=== PATIENT | female | born 1985 | race Caucasian/White ===

== ENCOUNTER 2016-03-23 08:34 | Emergency (ER) | payer SELFPAY ==
--- NOTE | 2016-03-23 10:04 | ER Document Report ---
HPI - HPI Patient complains to provider of: worsening back pain Onset: Other - Onset/Duration: Gradual Quality of pain: Throbbing Pain Level: 4 Context: 31 yo female with hx DJD c/o worsening of her usual low back pain since sunday. No fever. No saddle anesthesis. NO radiculopathy. Associated Symptoms: None Exacerbated by: Movement Relieved by: Denies Similar symptoms previously: Yes Recently seen / treated by doctor: No - ROS ROS below otherwise negative: Yes Systems Reviewed and Negative: Yes All other systems reviewed and negative - CARDIOVASCULAR Cardiovascular: DENIES: Chest pain - REPRODUCTIVE LMP: 03/10/16 Reproductive: DENIES: : - DERM Skin Color: Normal Past Medical History - General Information source: Patient - Social History Smoking Status: Never Smoker Chew tobacco use (# tins/day): No Frequency of alcohol use: None Drug Abuse: None Lives with: Family Family History: Reviewed & Not Pertinent, Hypertension, Thyroid Disfunction Patient has suicidal ideation: No Patient has homicidal ideation: No Renal/ Medical History: Denies: Hx Peritoneal Dialysis Musculoskeltal Medical History: Reports Hx Arthritis, Reports Hx Musculoskeletal Deformity, Reports Hx Musculoskeletal Trauma Surgical Hx: Negative - Immunizations Immunizations up to date: Yes Hx Diphtheria, Pertussis, Tetanus Vaccination: Yes - unknown Vertical Provider Document - CONSTITUTIONAL Agree With Documented VS: Yes Exam Limitations: No Limitations General Appearance: No Apparent Distress - INFECTION CONTROL TRAVEL OUTSIDE OF THE [place] IN LAST 30 DAYS: No - HEENT HEENT: Normocephalic - NECK Neck: Supple - RESPIRATORY Respiratory: Breath Sounds Normal, No Respiratory Distress O2 Sat by Pulse Oximetry: 100 - CARDIOVASCULAR Cardiovascular: Regular Rate, Regular Rhythm - BACK Back: Normal Inspection Notes: tender scaral muscles - MUSCULOSKELETAL/EXTREMETIES Musculoskeletal/Extremeties: ALETHEA ISSA - NEURO Level of Consciousness: Awake, Alert Motor/Sensory: No Motor Deficit, No Sensory Deficit Deep Tendon Reflexes: 2+ - shane ankle and patellar - DERM Integumentary: Warm, Dry, No Rash Course - Re-evaluation Re-evalutation: 03/23/16 10:20 Has been told in the past that she had the beginning of degenerative disc disease - Vital Signs Vital signs: Temp Pulse Resp BP Pulse Ox 97.9 F 111 H 18 140/87 H 100 03/23/16 08:42 03/23/16 08:42 03/23/16 08:42 03/23/16 08:42 03/23/16 08:42 Discharge - Discharge Clinical Impression: Acute exacerbation of chronic low back pain Condition: Good Disposition: HOME, SELF-CARE Instructions: Ice Packs ([facility]), Warm Packs ([facility]), Oral Narcotic Medication ([facility]) , Muscle Strain ([facility]), Muscle Relaxers ([facility]) Additional Instructions: warm or cold compress whichever feels better see [facility] Prescriptions: Ibuprofen [Motrin 800 mg Tablet] 800 mg PO Q8HP PRN #30 tablet PRN Reason: Cyclobenzaprine HCl [Flexeril 10 Mg Tablet] 10 mg PO TIDP PRN #20 tablet PRN Reason: Oxycodone HCl/Acetaminophen [Percocet 5-325 mg Tablet] 1 - 2 tab PO ASDIR PRN # 15 tablet PRN Reason: Referrals: CHANDNI YANG MD [ACTIVE STAFF] - Follow up as needed
[2016-03-23] MEDS ORDERED: OXYCODONE-ACETAMINOPHEN 5-325 MG TABLET PO ONE (10:15)
[2016-03-23] MEDS ORDERED: ONDANSETRON 4 MG TAB.RAPDIS PO ONE (10:15)
[2016-03-23 10:38] VITALS: BP 115/74
== END 2016-03-23 10:36 | disposition home or self-care (01) ==
LOC: ER 08:34
DX: M54.5 Low back pain (principal); M19.90 Unspecified osteoarthritis, unspecified site
CPT/HCPCS: 99283; S0119

== ENCOUNTER 2016-04-01 11:43 | Emergency (ER) | payer SELFPAY ==
--- NOTE | 2016-04-01 12:00 | ER Document Report ---
ED Medical Screen (RME) - General Stated Complaint: SKIN ISSUE Time seen by provider: 11:58 Mode of Arrival: Ambulatory Information source: Patient TRAVEL OUTSIDE OF THE [place] IN LAST 30 DAYS: No - HPI Patient complains to provider of: RASH Onset: Other - 2 DAYS Onset/Duration: Sudden Context: RECENTLY TOOK FLEXERIL FOR BACK PAIN, RASH STARTED AFTER THIS. Quality of pain: Burning Severity: Moderate Pain Level: 4 Associated Symptoms: None Exacerbated by: Movement Relieved by: Denies Similar symptoms previously: No Recently seen / treated by doctor: Yes - RECENTLY TREATED FOR BACK PAIN - Related Data Smoking: Non-smoker Frequency of alcohol use: None Drug Abuse: None Allergies/Adverse Reactions: No Known Allergies Allergy (Verified 04/01/16 11:57) Past Medical History Renal/ Medical History: Denies: Hx Peritoneal Dialysis Musculoskeltal Medical History: Reports Hx Arthritis, Reports Hx Musculoskeletal Deformity, Reports Hx Musculoskeletal Trauma - Immunizations Immunizations up to date: Yes Hx Diphtheria, Pertussis, Tetanus Vaccination: Yes - unknown
--- NOTE | 2016-04-01 13:21 | ER Document Report ---
ED Skin Rash/Insect Bite/Abscs - General Chief Complaint: Skin Problem Stated Complaint: SKIN ISSUE Mode of Arrival: Ambulatory Notes: 31 yo female c/o burning, itching rash to low back and left shoulder x 1 week. rash started 2 days after starting flexeril for low back pain. pt denies any other new contacts. TRAVEL OUTSIDE OF THE [place] IN LAST 30 DAYS: No - HPI Patient complains to provider of: Skin rash/lesion Onset: Last week Onset/Duration: Gradual, Persistent Quality of pain: Burning Skin Character: Erythema, Patchy Skin Temperature: Warm Quality of rash: Itchy, Burning Similar symptoms previously: No Recently seen / treated by doctor: Yes - last week in ED for back pain - Related Data Allergies/Adverse Reactions: No Known Allergies Allergy (Verified 04/01/16 11:57) Past Medical History - General Information source: Patient - Social History Smoking Status: Current Every Day Smoker Cigarette use (# per day): No Chew tobacco use (# tins/day): No Frequency of alcohol use: None Drug Abuse: None Lives with: Family Family History: Reviewed & Not Pertinent, Hypertension, Thyroid Disfunction Patient has suicidal ideation: No Patient has homicidal ideation: No Renal/ Medical History: Denies: Hx Peritoneal Dialysis Musculoskeltal Medical History: Reports Hx Arthritis, Reports Hx Musculoskeletal Deformity, Reports Hx Musculoskeletal Trauma - Immunizations Immunizations up to date: Yes Hx Diphtheria, Pertussis, Tetanus Vaccination: Yes - unknown Review of Systems - Review of Systems Constitutional: No symptoms reported EENT: No symptoms reported Cardiovascular: No symptoms reported Respiratory: No symptoms reported Gastrointestinal: No symptoms reported Genitourinary: No symptoms reported Female Genitourinary: No symptoms reported Musculoskeletal: No symptoms reported Skin: See HPI, Rash Hematologic/Lymphatic: No symptoms reported Neurological/Psychological: No symptoms reported Physical Exam - Vital signs Vitals: Temp Pulse Resp BP Pulse Ox 98.0 F 83 16 117/78 89 L 04/01/16 11:55 04/01/16 11:55 04/01/16 11:55 04/01/16 11:55 04/01/16 11:55 Interpretation: Normal - General General appearance: Appears well, Alert - HEENT Head: Normocephalic, Atraumatic Eyes: Normal Pupils: PERRL - Respiratory Respiratory status: No respiratory distress Chest status: Nontender Breath sounds: Normal Chest palpation: Normal - Cardiovascular Rhythm: Regular Heart sounds: Normal auscultation Murmur: No - Abdominal Inspection: Normal Distension: No distension Bowel sounds: Normal Tenderness: Nontender Organomegaly: No organomegaly - Back Back: Normal, Nontender - Extremities General upper extremity: Normal inspection, Nontender, Normal color, Normal ROM , Normal temperature General lower extremity: Normal inspection, Nontender, Normal color, Normal ROM , Normal temperature, Normal weight bearing. No: Luis's sign - Neurological Neuro grossly intact: Yes Cognition: Normal Orientation: AAOx4 [place] Coma Scale Eye Opening: Spontaneous [place] Coma Scale Verbal: Oriented [place] Coma Scale Motor: Obeys Commands [place] Coma Scale Total: 15 Speech: Normal Motor strength normal: LUE, RUE, LLE, RLE Sensory: Normal - Psychological Associated symptoms: Normal affect, Normal mood - Skin Skin Temperature: Warm Skin Moisture: Dry Skin Color: Normal Skin irregularity: Erythema, Rash - maculopapular rash to low back, crosses the mid point on both sides and patch to left posterior shoulder. no vesicles. no crusting or sloughing. no mucosal involvement Course - Re-evaluation Re-evalutation: 04/01/16 13:19 suspect allergic source of rash. low suspicion for infectious cause. low suspicion for shingles due to the rash distribution. it is not dermatomal and no vesicles are appreciated. Will treat with topical and oral steroids. pt evaluated by Dr Matthews who agrees with assessment and plan - Vital Signs Vital signs: Temp Pulse Resp BP Pulse Ox 98.0 F 83 16 117/78 89 L 04/01/16 11:55 04/01/16 11:55 04/01/16 11:55 04/01/16 11:55 04/01/16 11:55 Discharge - Discharge Clinical Impression: Contact dermatitis Qualifiers: Contact dermatitis type: allergic Contact dermatitis trigger: unspecified trigger Qualified Code(s): L23.9 - Allergic contact dermatitis, unspecified cause Condition: Stable Disposition: HOME, SELF-CARE Instructions: Steroid Medication, Topical Steroid Cream or Ointment ([facility]) Additional Instructions: We are treating your rash as allergic Apply cool compress with Dom boro's solution x 10 min, then apply steroid cream Take oral steroids as prescribed Benadryl for itch Prescriptions: Calcium Acetate/Aluminum Sulf [[place] Packet] 1 each TP TID PRN #30 packet PRN Reason: Prednisone [Deltasone 10 mg Tablet] 10 mg PO ASDIR PRN #21 tablet PRN Reason: Triamcinolone Acetonide [Aristocort 0.5% Cream 15 gm] 1 applic TP BID #30 g
[2016-04-01 14:05] VITALS: BP 126/78
== END 2016-04-01 14:03 | disposition home or self-care (01) ==
LOC: ER 11:43
DX: L23.9 Allergic contact dermatitis, unspecified cause (principal); F17.200 Nicotine dependence, unspecified, uncomplicated
CPT/HCPCS: 99283

== ENCOUNTER 2016-09-18 10:02 | Emergency (ER) | payer SELFPAY ==
[2016-09-18] MEDS ORDERED: KETOROLAC TROMETHAMINE 60 MG/2 ML SDV IM ONE (10:30)
[2016-09-18] MEDS ORDERED: PROMETHAZINE HCL INJ 50 MG/1 ML VIAL IM ONE (10:30)
--- NOTE | 2016-09-18 10:34 | ER Document Report ---
ED Medical Screen (RME) - General Chief Complaint: Back Pain Stated Complaint: FALL/BACK INJURY Time Seen by Provider: 09/18/16 10:30 Mode of Arrival: Ambulatory Information source: Patient TRAVEL OUTSIDE OF THE [place] IN LAST 30 DAYS: No - HPI Patient complains to provider of: lbp Onset: Just prior to arrival - pt with h/o lbp with twisting injury to lumbar spine when her dog pulled on leash. Denies direct trauma - Related Data Allergies/Adverse Reactions: No Known Allergies Allergy (Verified 09/18/16 10:06) Past Medical History - Social History Chew tobacco use (# tins/day): No Frequency of alcohol use: None Renal/ Medical History: Denies: Hx Peritoneal Dialysis Musculoskeltal Medical History: Reports Hx Arthritis, Reports Hx Musculoskeletal Deformity, Reports Hx Musculoskeletal Trauma Surgical Hx: Negative - Immunizations Immunizations up to date: Yes Hx Diphtheria, Pertussis, Tetanus Vaccination: Yes - unknown Physical Exam - Vital signs Vitals: Temp Pulse Resp BP Pulse Ox 99.0 F 124 H 16 140/93 H 99 09/18/16 10:08 09/18/16 10:08 09/18/16 10:08 09/18/16 10:08 09/18/16 10:08 Course - Vital Signs Vital signs: Temp Pulse Resp BP Pulse Ox 99.0 F 120 H 16 140/93 H 98 09/18/16 10:08 09/18/16 10:25 09/18/16 10:08 09/18/16 10:08 09/18/16 10:25
--- NOTE | 2016-09-18 11:40 | RADIOLOGY REPORT (SQ) ---
EXAM DESCRIPTION: CT LUMBAR SPINE WITHOUT COMPLETED DATE/TIME: 09/18/2016 11:07 am REASON FOR STUDY: low back pain COMPARISON: None. TECHNIQUE: Axial images acquired through the lumbar spine without intravenous contrast. Images revi ewed with lung, soft tissue and bone windows. Reconstructed coronal and sagittal MPR images reviewed . All images stored on PACS. All CT scanners at this facility use dose modulation, iterative reconstruction, and/or weight based d osing when appropriate to reduce radiation dose to as low as reasonably achievable (ALARA). [facility]: Dose Right [facility]: CareDose [facility]: Dose Right [facility]: Teradose 4D [facility]: [place] RADIATION DOSE: mGy. LIMITATIONS: None. FINDINGS: SEGMENTATION: Normal. No transitional anatomy. ALIGNMENT: Normal. VERTEBRAL BODIES: No fractures. No dislocation. No acute findings. DISCS: No significant protrusions. Study limited by lack of intrathecal contrast. PEDICLES, TRANSVERSE PROCESSES: No fractures. No dislocation. No acute findings. FACETS, POSTERIOR ELEMENTS: No fractures. No dislocation. No spinal stenosis. HARDWARE: None in the spine. VISUALIZED RIBS: No fractures. SOFT TISSUES: No significant or acute finding in adjacent soft tissues. OTHER: No other significant finding. IMPRESSION: No significant findings. No significant vertebral compression or disc space reduction i s seen. TECHNICAL DOCUMENTATION: JOB ID: [id number] Quality ID # [id number]: Final reports with documentation of one or more dose reduction techniques (e.g., Au tomated exposure control, adjustment of the mA and/or kV according to patient size, use of iterative reconstruction technique) 2010 [employer]- All Rights Reserved
[2016-09-18 12:05] LABS: APPEARANCE,URINE CLEAR; BILIRUBIN,URINE NEGATIVE (NEGATIVE); GLUCOSE, URINE NEGATIVE (NEGATIVE); KETONES,URINE NEGATIVE (NEGATIVE); LEUKOCYTE ESTERASE,URINE NEGATIVE (NEGATIVE); NITRITE,URINE NEGATIVE (NEGATIVE); PROTEIN,URINE NEGATIVE (NEGATIVE); URINE SPECIFIC GRAVITY 1.004; UROBILINOGEN,URINE NEGATIVE mg/dL (<2.0)
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
[2016-09-18 12:46] VITALS: BP 152/91
== END 2016-09-18 12:46 | disposition home or self-care (01) ==
LOC: ER 10:02
DX: M54.5 Low back pain (principal); X50.1XXA Overexertion from prolonged static or awkward postures, initial encounter; G89.29 Other chronic pain
CPT/HCPCS: 99284; 96372; 81025; 81001; 72131; J1885; J2550

== ENCOUNTER 2017-02-12 10:38 | Emergency (ER) | payer SELFPAY ==
[2017-02-12] MEDS ORDERED: DEXAMETHASONE SOD PHOS INJ 10 MG/1 ML VIAL IM ONE (12:37)
[2017-02-12] MEDS ORDERED: HYDROCODONE/ACETAMINOPHEN 5-325 MG 6 TAB/DSPK PO PRN (12:37)
[2017-02-12] MEDS ORDERED: LIDOCAINE 5% (700 MG) TRANSDERMAL ADH..PATCH TP ONE (12:37)
--- NOTE | 2017-02-12 12:46 | ER Document Report ---
ED Neck/Back Problem - General Chief Complaint: Low Back Pain Stated Complaint: BACK PAIN Time Seen by Provider: 02/12/17 11:05 Mode of Arrival: Ambulatory Information source: Patient Notes: 32-year-old female presents to ED for complaint of back pain that is progressively gotten worse today. Patient denies any loss control of bowel bladder. She has no loss of control of muscles. States she has taken ibuprofen 800 mg a day 30 today. She states she has degenerative disc disease. TRAVEL OUTSIDE OF THE [place] IN LAST 30 DAYS: No - HPI Patient complains to provider of: Lower back Onset: Other - chronic worse today Where: Home Onset: Chronic Timing: Waxing and waning, Still present Quality of pain: Sharp Severity: Moderate Pain Level: 4 Recent injury: No Associated symptoms: Like prior neck/back pain, Radiation to leg, Lower back pain. denies: Constipation, Incontinence, Motor loss, Numbness/tingling, Radiation to arm, Radiation to chest, Sensory loss, Sweaty, Unable to urinate, Upper back pain Exacerbated by: Movement of trunk, Sitting position Relieved by: Nothing Similar symptoms previously: Yes Recently seen / treated by doctor: No - Related Data Allergies/Adverse Reactions: No Known Allergies Allergy (Verified 02/12/17 10:41) Past Medical History - General Information source: Patient - Social History Smoking Status: Never Smoker Frequency of alcohol use: None Drug Abuse: None Lives with: Family Family History: Hypertension, Thyroid Disfunction Patient has suicidal ideation: No Patient has homicidal ideation: No - Past Medical History Cardiac Medical History: Reports: None Pulmonary Medical History: Reports: None EENT Medical History: Reports: None Neurological Medical History: Reports: None Endocrine Medical History: Reports: None Renal/ Medical History: Reports: None Malignancy Medical History: Reports: None GI Medical History: Reports: None Musculoskeltal Medical History: Reports Hx Arthritis, Reports Hx Musculoskeletal Deformity, Reports Hx Musculoskeletal Trauma Skin Medical History: Reports None Psychiatric Medical History: Reports: None Traumatic Medical History: Reports: None Infectious Medical History: Reports: None Surgical Hx: Negative Past Surgical History: Reports: None - Immunizations Immunizations up to date: Yes Hx Diphtheria, Pertussis, Tetanus Vaccination: Yes - unknown Review of Systems - Review of Systems Constitutional: No symptoms reported EENT: No symptoms reported Cardiovascular: No symptoms reported Respiratory: No symptoms reported Gastrointestinal: No symptoms reported. denies: Constipation, Fecal incontinence Genitourinary: No symptoms reported. denies: Incontinence, Retention Female Genitourinary: No symptoms reported Musculoskeletal: Back pain, Muscle pain, Muscle stiffness Skin: No symptoms reported Hematologic/Lymphatic: No symptoms reported Neurological/Psychological: No symptoms reported -: Yes All other systems reviewed and negative Physical Exam - Vital signs Vitals: Temp Pulse Resp BP Pulse Ox 98.9 F 116 H 18 124/94 H 99 02/12/17 10:46 02/12/17 10:46 02/12/17 10:46 02/12/17 10:46 02/12/17 10:46 Interpretation: Normal - General General appearance: Appears well, Alert - HEENT Head: Normocephalic, Atraumatic Eyes: Normal Pupils: PERRL - Respiratory Respiratory status: No respiratory distress Chest status: Nontender Breath sounds: Normal Chest palpation: Normal - Cardiovascular Rhythm: Regular Heart sounds: Normal auscultation Murmur: No - Abdominal Inspection: Normal Distension: No distension Bowel sounds: Normal Tenderness: Nontender Organomegaly: No organomegaly - Back Back: Normal, Tender. No: Deformity/step-off, CVA tenderness, Vertebra tenderness, Scars, Scoliosis, Wounds - Extremities General upper extremity: Normal inspection, Nontender, Normal color, Normal ROM , Normal temperature General lower extremity: Normal inspection, Nontender, Normal color, Normal ROM , Normal temperature, Normal weight bearing. No: Luis's sign - Neurological Neuro grossly intact: Yes Cognition: Normal Orientation: AAOx4 Kerwin Coma Scale Eye Opening: Spontaneous Burke Coma Scale Verbal: Oriented Kerwin Coma Scale Motor: Obeys Commands Burke Coma Scale Total: 15 Speech: Normal Motor strength normal: LUE, RUE, LLE, RLE Sensory: Normal - Psychological Associated symptoms: Normal affect, Normal mood - Skin Skin Temperature: Warm Skin Moisture: Dry Skin Color: Normal Course - Re-evaluation Re-evalutation: 02/12/17 20:42 Patient denies any signs or symptoms of cauda equina, denies any loss of control of bowel bladder, denies any saddle anesthesia, denies any loss control of muscles to the leg or loss of sensation to the legs. Patient is able to walk in the fact is walking around agitated, she states it hurts to sit down or bend over. She has a history of back pain. This is a chronic problem. Patient was treated with Decadron IM Lidoderm patch and [place] dispense pack for her pain. - Vital Signs Vital signs: Temp Pulse Resp BP Pulse Ox 98.9 F 102 H 18 125/84 97 02/12/17 10:46 02/12/17 12:57 02/12/17 10:46 02/12/17 12:57 02/12/17 12:57 Discharge - Discharge Clinical Impression: Low back pain Qualifiers: Chronicity: chronic Back pain laterality: bilateral Sciatica presence: with sciatica Sciatica laterality: sciatica of right side Qualified Code(s): M54.41 - Lumbago with sciatica, right side Condition: Stable Disposition: HOME, SELF-CARE Instructions: Family Physicians / Practices Additional Instructions: LOW BACK PAIN: Three out of every four people will have an episode of disabling back pain during their lifetime. Most commonly the pain is due to straining of the muscles and ligaments in the low back. Usual treatment includes: (1) Rest on a firm surface. Avoid lying on your stomach. (2) Ice pack the painful area. After a few days, gentle heat may be used intermittently to relax the area, or ice packs can be continued. (3) Medication may be needed -- muscle relaxers and antiinflammatory medicines are commonly used. (4) As the back improves, exercises are prescribed to strengthen the back and abdominal muscles. Your doctor will advise you on the proper care for your back at each stage in your recovery. You may be better in a few days -- or healing may take several weeks. If new symptoms of a "herniated disc" (radiation of pain, numbness, or tingling down the back of the leg or weakness in the leg) occur, you should be re-examined. Further testing may be necessary. ORAL NARCOTIC MEDICATION: You have been given a [place] dispense back for pain control. This medication is a narcotic. It's best taken with food, as nausea can result if taken on an empty stomach. Don't operate machinery or drive within six hours of taking this medication. Do not combine this medicine with alcohol, or with any medication which can cause sedation (such as cold tablets or sleeping pills) unless you get permission from the physician. Narcotics tend to cause constipation. If possible, drink plenty of fluids and eat a diet high in fiber and fruits. Please be aware that prescription narcotics also have the potential for abuse. People become addicted to these medications because of the general sense of wellbeing that they induce. This feeling along with a significant reduction in tension, anxiety, and aggression provides a stimulating seductive quality to these drugs. Once your pain is under control, we encourage you to discard your unused narcotics. MUSCLE RELAXERS: Muscle relaxing medications are usually prescribed for acute muscle spasm or injury to the neck and back. They are often combined with antiinflammatory pain medication for increased relief. You may stop the muscle relaxer when the pain and stiffness have improved. Start the medication again if spasms recur. Muscle relaxers may cause drowsiness, especially with the first dose. Do not operate machinery or drive while under the effects of the medication. Most muscle relaxers last up to 24 hours. Do not combine the medication with alcohol. ICE PACKS: Apply ice packs frequently against the painful area. Many different schedules are recommended, such as "20 minutes on, 20 minutes off" or "one hour ice, two hours rest." If you need to work, you may need to go longer between ice treatments. You should plan to have the area ice packed AT LEAST one fourth of the time. The ice should be applied over the wrap, tape, or splint, or over a layer of cloth -- not directly against the skin. Some ice bags have a built-in cloth and can be put directly on the skin. WARM PACKS: After approximately two days, apply gentle heat (such as a heating pad or hot water bottle) for about 20 to 30 minutes about every two hours -- at least four times daily. Warmth and elevation will help you make a more rapid recovery , and will ease the pain considerably. Do not use HOT heat, and never apply heat for longer than 30 minutes. The continuous heat can invisibly damage skin and muscles -- even when no burn is seen on the surface. Damaged muscles can make you MORE sore. Been given a Lidoderm patch while in the emergency room. This can stay on to your back for 12 hours. After this it must be removed. You can try Aspercreme or [id number] Lidoderm patches after this for your discomfort. FOLLOW-UP CARE: If you have been referred to a physician for follow-up care, call the physician s office for an appointment as you were instructed or within the next two days. If you experience worsening or a significant change in your symptoms, notify the physician immediately or return to the Emergency Department at any time for re-evaluation. Prescriptions: Methocarbamol [Robaxin 500 mg Tablet] 1,000 mg PO BID PRN #20 tablet PRN Reason: Forms: Elevated Blood Pressure, Return to Work Referrals: FRANKLIN QUIJANO MD [ASSOCIATE] - Follow up as needed
[2017-02-12 13:10] VITALS: BP 125/84
== END 2017-02-12 13:11 | disposition home or self-care (01) ==
LOC: ER 10:38
DX: G89.29 Other chronic pain (principal); M54.41 Lumbago with sciatica, right side
CPT/HCPCS: 99283; 96372; J1100

== ENCOUNTER 2017-07-09 19:14 | Emergency (ER) | payer SELFPAY ==
[2017-07-09] MEDS ORDERED: LIDOCAINE 5% (700 MG) TRANSDERMAL ADH..PATCH TP ONE (20:05)
[2017-07-09] MEDS ORDERED: OXYCODONE-ACETAMINOPHEN 5-325 MG TABLET PO ONE (20:05)
[2017-07-09] MEDS ORDERED: DEXAMETHASONE SOD PHOS INJ 10 MG/1 ML VIAL IM ONE (20:05)
[2017-07-09] MEDS ORDERED: METHOCARBAMOL 500 MG TABLET PO ONE (20:05)
[2017-07-09] MEDS ORDERED: KETOROLAC TROMETHAMINE 60 MG/2 ML SDV IM ONE (20:05)
--- NOTE | 2017-07-09 20:13 | ER Document Report ---
ED Neck/Back Problem - General Chief Complaint: Back Pain Stated Complaint: LOWER BACK PAINS Time Seen by Provider: 07/09/17 19:57 Mode of Arrival: Ambulatory Information source: Patient Notes: 32-year-old female presents to ED for complaint of severe low back pain the last 2 days. She states it feels like it is on fire. She has a history of severe back pain with degenerative disc disease. She states she is unable to go to a doctor for her chronic back pain and is progressively getting worse. She states she has not been able sleep for 2 days because the pain is so bad. She states she has been taken ibuprofen with no relief. She states she has had muscle relaxers in the past and they have not helped. TRAVEL OUTSIDE OF THE [place] IN LAST 30 DAYS: No - HPI Patient complains to provider of: Lower back Onset: Other - 2 days Onset: Chronic Timing: Worse Quality of pain: Burning, Sharp, Throbbing Severity: Severe Pain Level: 5 Recent injury: No Associated symptoms: Like prior neck/back pain, Lower back pain - Radiates to right buttocks. denies: Constipation, Fever, Incontinence, Motor loss, Numbness /tingling, Radiation to arm, Radiation to chest, Radiation to leg, Sweaty, Unable to urinate, Upper back pain Exacerbated by: Movement of trunk, Sitting position Relieved by: Nothing Similar symptoms previously: Yes Recently seen / treated by doctor: No - Related Data Allergies/Adverse Reactions: No Known Allergies Allergy (Verified 02/12/17 10:41) Past Medical History - General Information source: Patient - Social History Smoking Status: Never Smoker Cigarette use (# per day): No Chew tobacco use (# tins/day): No Smoking Education Provided: No Frequency of alcohol use: None Drug Abuse: None Lives with: Family Family History: Hypertension, Thyroid Disfunction Patient has suicidal ideation: No Patient has homicidal ideation: No - Past Medical History Cardiac Medical History: Reports: None Pulmonary Medical History: Reports: None EENT Medical History: Reports: None Neurological Medical History: Reports: None Endocrine Medical History: Reports: None Renal/ Medical History: Denies: Hx Peritoneal Dialysis Musculoskeltal Medical History: Reports Hx Arthritis, Reports Hx Musculoskeletal Deformity, Reports Hx Musculoskeletal Trauma - Immunizations Immunizations up to date: Yes Hx Diphtheria, Pertussis, Tetanus Vaccination: Yes - unknown Review of Systems - Review of Systems Constitutional: No symptoms reported EENT: No symptoms reported Cardiovascular: No symptoms reported Respiratory: No symptoms reported Gastrointestinal: No symptoms reported. denies: Constipation, Fecal incontinence Genitourinary: No symptoms reported. denies: Incontinence, Retention Female Genitourinary: No symptoms reported Musculoskeletal: Back pain, Muscle pain Skin: No symptoms reported Hematologic/Lymphatic: No symptoms reported Neurological/Psychological: No symptoms reported. denies: Weakness, Gait changes, Loss of power, Numbness, Tingling -: Yes All other systems reviewed and negative Physical Exam - Vital signs Vitals: Temp Pulse Resp BP Pulse Ox 98.4 F 90 16 119/79 100 07/09/17 19:44 07/09/17 19:44 07/09/17 19:44 07/09/17 19:44 07/09/17 19:44 Interpretation: Normal - General General appearance: Appears well, Alert - HEENT Head: Normocephalic, Atraumatic Eyes: Normal Pupils: PERRL - Respiratory Respiratory status: No respiratory distress Chest status: Nontender Breath sounds: Normal Chest palpation: Normal - Cardiovascular Rhythm: Regular Heart sounds: Normal auscultation Murmur: No - Abdominal Inspection: Normal Distension: No distension Bowel sounds: Normal Tenderness: Nontender Organomegaly: No organomegaly - Back Back: Normal, Tender - Tender to lower back bilateral to include vertebrae. Tenderness to the SI joint on the right, Vertebra tenderness - Lumbar area - Extremities General upper extremity: Normal inspection, Nontender, Normal color, Normal ROM , Normal temperature General lower extremity: Normal inspection, Nontender, Normal color, Normal ROM , Normal temperature, Normal weight bearing. No: Luis's sign - Neurological Neuro grossly intact: Yes Cognition: Normal Orientation: AAOx4 Kerwin Coma Scale Eye Opening: Spontaneous Kerwin Coma Scale Verbal: Oriented Kerwin Coma Scale Motor: Obeys Commands Kerwin Coma Scale Total: 15 Speech: Normal Motor strength normal: LUE, RUE, LLE, RLE Sensory: Normal - Psychological Associated symptoms: Normal affect, Normal mood - Skin Skin Temperature: Warm Skin Moisture: Dry Skin Color: Normal Course - Re-evaluation Re-evalutation: 07/09/17 21:30 After performing a Medical Screening Examination, I estimate there is LOW risk for EXPANDING OR RUPTURED ABDOMINAL AORTIC ANEURYSM, CAUDA EQUINA SYNDROME, EPIDURAL MASS LESION, or HERNIATED DISK CAUSING SEVERE SPINAL STENOSIS, thus I consider the discharge disposition reasonable. I have reevaluated this patient multiple times and no significant life threatening changes are noted. The patient and I have discussed the diagnosis and risks, and we agree with discharging home and close follow-up. We also discussed returning to the Emergency Department immediately if new or worsening symptoms occur with the understanding that symptoms and presentations can change. We have discussed the symptoms which are most concerning (e.g., saddle anesthesia, urinary or bowel incontinence or retention, changing or worsening pain) that necessitate immediate return. - Vital Signs Vital signs: Temp Pulse Resp BP Pulse Ox 97.7 F 62 16 112/70 98 07/09/17 20:29 07/09/17 20:29 07/09/17 19:44 07/09/17 20:29 07/09/17 20:29 Discharge - Discharge Clinical Impression: Acute exacerbation of chronic low back pain Sciatica Qualifiers: Laterality: right Qualified Code(s): M54.31 - Sciatica, right side Condition: Stable Disposition: HOME, SELF-CARE Instructions: Family Physicians / Practices Additional Instructions: Chronic Back Pain Chronic back pain (pain persisting longer than three months) is a common problem. A medical evaluation can look for herniated disc, arthritis, osteoporosis, tumors, and infections. But at least half the time, there's no obvious treatable cause. Anxiety and depression tend to worsen back pain. Ibuprofen or other anti-inflammatory medicine can help. A heating pad, used for 15-20 minutes at a time, can ease pain. For this type of back pain, narcotic medicines should be avoided. Muscle relaxers are rarely helpful unless you're having spasms. Activity is important. Find an aerobic exercise program that your back can tolerate. Too much rest makes back pain worse. Specific back exercises are usually prescribed to strengthen the back and abdominal muscles. Often, a physical therapist can help. Avoid heavy lifting, working while bent over, or standing with both knees straight. Most back pain patients do better with a firm mattress. If new symptoms of a "herniated disc" (radiation of pain, numbness, or tingling down the back of the leg or weakness in the leg) occur, you should be re-examined. ORAL NARCOTIC MEDICATION: You have been given a Percocet for pain control. This medication is a narcotic. It's best taken with food, as nausea can result if taken on an empty stomach. Don't operate machinery or drive within six hours of taking this medication. Do not combine this medicine with alcohol, or with any medication which can cause sedation (such as cold tablets or sleeping pills) unless you get permission from the physician. Narcotics tend to cause constipation. If possible, drink plenty of fluids and eat a diet high in fiber and fruits. Please be aware that prescription narcotics also have the potential for abuse. People become addicted to these medications because of the general sense of wellbeing that they induce. This feeling along with a significant reduction in tension, anxiety, and aggression provides a stimulating seductive quality to these drugs. Once your pain is under control, we encourage you to discard your unused narcotics. MUSCLE RELAXERS: Muscle relaxing medications are usually prescribed for acute muscle spasm or injury to the neck and back. They are often combined with antiinflammatory pain medication for increased relief. You may stop the muscle relaxer when the pain and stiffness have improved. Start the medication again if spasms recur. Muscle relaxers may cause drowsiness, especially with the first dose. Do not operate machinery or drive while under the effects of the medication. Most muscle relaxers last up to 24 hours. Do not combine the medication with alcohol. ICE PACKS: Apply ice packs frequently against the painful area. Many different schedules are recommended, such as "20 minutes on, 20 minutes off" or "one hour ice, two hours rest." If you need to work, you may need to go longer between ice treatments. You should plan to have the area ice packed AT LEAST one fourth of the time. The ice should be applied over the wrap, tape, or splint, or over a layer of cloth -- not directly against the skin. Some ice bags have a built-in cloth and can be put directly on the skin. WARM PACKS: After approximately two days, apply gentle heat (such as a heating pad or hot water bottle) for about 20 to 30 minutes about every two hours -- at least four times daily. Warmth and elevation will help you make a more rapid recovery , and will ease the pain considerably. Do not use HOT heat, and never apply heat for longer than 30 minutes. The continuous heat can invisibly damage skin and muscles -- even when no burn is seen on the surface. Damaged muscles can make you MORE sore. Stretching Exercises for the Back The physician has recommended that you begin stretching exercises for your back. These are often used even while the back is painful. However, you should notify the physician if the activities seem to increase your pain. PELVIC TILT: Lie flat on your back with knees bent. Tighten your stomach and buttock muscles so it flattens your lower back against the floor. Hold 10 seconds. Repeat 10 times, twice daily. KNEE RAISE: Lying on the back with knees bent, raise one knee to your chest, then the other. Hold both knees against the chest 10 seconds, then lower one knee at a time. Repeat 10 times, twice daily. PARTIAL TRUNK RAISE: Lie face down, arms at your sides. Keeping your waist on the floor, use your arms raise your chest up. Support yourself on your elbows for 30 seconds. Repeat twice daily, increasing the time to two minutes as you recover. STEROID MEDICATION: You have been given an injection of medicine of the cortisone/steroid class. This medication is used to control inflammation or allergy. It is often continued as a pill for a short period of time, until the acute process subsides. There are usually no side effects from short-term use of cortisone-like medications. Some persons feel an increased sense of well-being and are not sleepy at bedtime. Long-term use of cortisone medications is best avoided, unless required for a severe condition. If your condition does not remit, or relapses after the course of corticosteroid medication, you should consult your physician. Toradol Injection You have been given an injection of ketorolac tromethamine (Toradol). This is an excellent, safe drug for pain control. It also has potent antiinflammatory action. You should have significant pain relief within about one hour. Toradol is not addicting and is non-sedating. It does not interfere with driving or work. Call or return if you develop itching, hives, shortness of breath, or rash. FOLLOW-UP CARE: If you have been referred to a physician for follow-up care, call the physician s office for an appointment as you were instructed or within the next two days. If you experience worsening or a significant change in your symptoms, notify the physician immediately or return to the Emergency Department at any time for re-evaluation. Prescriptions: Methocarbamol [Robaxin 500 mg Tablet] 1,000 mg PO BID PRN #20 tablet PRN Reason: Forms: Return to Work
[2017-07-09 20:31] VITALS: BP 112/70
== END 2017-07-09 20:41 | disposition home or self-care (01) ==
LOC: ER 19:14
DX: G89.29 Other chronic pain (principal); M54.41 Lumbago with sciatica, right side
CPT/HCPCS: 99283; 96372; J1885; J1100

== ENCOUNTER 2018-02-21 04:02 | Emergency (ER) | payer SELFPAY ==
[2018-02-21] MEDS ORDERED: MORPHINE SULFATE 10 MG/ML INJ IM ONE (04:16)
[2018-02-21] MEDS ORDERED: METHOCARBAMOL 750 MG TABLET PO ONE (04:17)
--- NOTE | 2018-02-21 04:22 | ER Document Report ---
ED General - General Chief Complaint: Low Back Pain Stated Complaint: BACK PAIN Time Seen by Provider: 02/21/18 04:11 Notes: Patient is a 33-year-old female with history of chronic low back pain that presents to the emergency department for chief complaint of back pain. Patient reports that she has had progression of her chronic low back pain, over the past 48 hours, she describes the pain as 9 out of 10, describes it as a severe aching sensation in her low back, worse with bending over and movements. And worse with walking. She denies saddle anesthesia, paresthesias, numbness, tingling or weakness in the lower extremities, she states the pain gets so severe that she feels weak in her legs when she is walking, but denies falling over, or having numbness or weakness on one side of the other. She also denies having any urinary retention, or incontinence, also denies having any incontinence of stool. No injuries that she is aware of. This is similar to her chronic low back pain, she has been taking Motrin and Tylenol without improvement. She reports that she has been out of insurance, and has not been able to see anybody for her pain. Past Medical History: Chronic low back pain, degenerative disc disease Past Surgical History: Denies surgical history Social History: Denies tobacco, alcohol or drug use. Family History: Reviewed and noncontributory for presenting illness Allergies: Reviewed, see documented allergy list. REVIEW OF SYSTEMS: Other than noted above, the 12 point review of systems was reviewed with the patient and were negative, all pertinent findings are included in the HPI. PHYSICAL EXAMINATION: Vital signs reviewed, nursing noted reviewed. GENERAL: Patient appears uncomfortable, agitated HEAD: Atraumatic, normocephalic. EYES: Eyes appear normal, sclera anicteric, conjunctiva are normal. ENT: Moist mucous membranes. NECK: Normal range of motion, supple without lymphadenopathy LUNGS: Breath sounds clear to auscultation bilaterally and equal. No wheezes rales or rhonchi. HEART: Heart rate tachycardic, irregular rhythm EXTREMITIES: Nontender, good range of motion, no pitting or edema. Back: Mild tenderness to palpation to the SI joints bilaterally, as well as the paraspinal muscles of the lumbar spine, no midline tenderness, no step-off or deformities to the thoracic or lumbar spine. Negative straight leg raising bilaterally. Patient was ambulating in the ED. NEUROLOGICAL: No focal neurological deficits. Moves all extremities spontaneously Motor and sensory grossly intact on exam. Achilles and patellar tendon reflexes are +2/4 bilaterally, patient has +5/5 strength with plantarflexion, dorsiflexion, and extension of the hallucis longus tendon bilaterally. PSYCH: Patient is agitated, but appropriate when answering questions SKIN: Warm, Dry, normal turgor, no rashes or lesions noted on exposed skin TRAVEL OUTSIDE OF THE [place] IN LAST 30 DAYS: No - Related Data Allergies/Adverse Reactions: No Known Allergies Allergy (Verified 02/21/18 04:03) Past Medical History - Social History Smoking Status: Never Smoker Family History: Hypertension, Thyroid Disfunction Patient has suicidal ideation: No Patient has homicidal ideation: No Renal/ Medical History: Denies: Hx Peritoneal Dialysis Musculoskeletal Medical History: Reports Hx Arthritis, Reports Hx Musculoskeletal Deformity, Reports Hx Musculoskeletal Trauma - Immunizations Immunizations up to date: Yes Hx Diphtheria, Pertussis, Tetanus Vaccination: Yes - unknown Physical Exam - Vital signs Vitals: Temp Pulse Resp BP Pulse Ox 100.1 F 125 H 22 H 113/67 100 02/21/18 04:06 02/21/18 04:06 02/21/18 04:06 02/21/18 04:06 02/21/18 04:06 Course - Re-evaluation Re-evalutation: Presentation of a well appearing patient complaining of acute on chronic back pain. No rapid progression of symptoms, systemic symptoms including fevers, chills, weight loss, history of recent bacterial infection, bilateral symptoms, numbness, weakness, difficulty walking, urinary retention or bowel incontinence, personal history of cancer, immunosuppression, diabetes, known AAA, or history of IV drug use. Exam is without point tenderness over vertebral bodies, pulsatile abdominal mass, and patient has symmetric and intact lower extremity strength, sensation, and reflexes without clonus. 2+ symmetric medial malleolar and dorsalis pedis pulses Based on history and physical, I have a very low suspicion of a concerning etiology of pain including epidural compression syndrome, spinal infection, transverse myelitis, malignancy, abdominal aortic aneurysm, renal colic, acute lower extremity claudication, neurogenic claudication, ankylosing spondylitis, or other intra-abdominal process. Due to absence of concerning risk factors in history and physical as well as absence of rapidly progressive, severe, or bilateral symptoms, will defer imaging at this point. Patient treated with single dose of IM morphine 4 mg, and p.o. Robaxin 750 mg, did obtain urinalysis, urine hCG, prior to administrating any NSAIDs. Patient hCG did come back positive, in the urine, she stated her first day of her last menstrual period was the beginning of this month, she is currently on oral contraceptive pills, I discussed that there this result, she stated that she "cannot keep this 1", and is planning on having an . She states that her pain is too severe, I discussed that there Tylenol therapy, warm compresses and following up with orthopedic surgery, I did dispense her 6 pills of [place] to take for breakthrough pain only, and have her follow-up with orthopedic surgery which she was agreeable to. - Vital Signs Vital signs: Temp Pulse Resp BP Pulse Ox 100.1 F 108 H 18 110/67 99 02/21/18 05:15 02/21/18 05:15 02/21/18 05:15 02/21/18 05:15 02/21/18 05:15 - Laboratory Laboratory results interpreted by me: 02/21/18 04:30 Urine HCG, Qual POSITIVE H Discharge - Discharge Clinical Impression: Low back pain Qualifiers: Chronicity: chronic Back pain laterality: bilateral Sciatica presence: without sciatica Qualified Code(s): M54.5 - Low back pain Qualifiers: Weeks of gestation: unspecified Qualified Code(s): Z34.90 - Encounter for supervision of normal , unspecified, unspecified trimester Condition: Stable Disposition: HOME, SELF-CARE Instructions: Low Back Pain ([facility]) Additional Instructions: Please follow-up with orthopedic surgery, please take the prescribed pain medication sparingly, and only for breakthrough pain. You are positive for on this visit, I have provided women's health follow-up Referrals: MAHAMED MACKEY MD [ACTIVE STAFF] - Follow up as needed [facility] [Provider Group] - Follow up as needed
[2018-02-21 04:57] LABS: APPEARANCE,URINE SLIGHTLY-CLOUDY; BILIRUBIN,URINE NEGATIVE (NEGATIVE); COLOR,URINE YELLOW; GLUCOSE, URINE NEGATIVE (NEGATIVE); KETONES,URINE NEGATIVE (NEGATIVE); LEUKOCYTE ESTERASE,URINE NEGATIVE (NEGATIVE); NITRITE,URINE NEGATIVE (NEGATIVE); PROTEIN,URINE NEGATIVE (NEGATIVE); URINE SPECIFIC GRAVITY 1.023; UROBILINOGEN,URINE NEGATIVE mg/dL (<2.0)
[2018-02-21] MEDS ORDERED: HYDROCODONE/ACETAMINOPHEN 5-325 MG (6 TAB/ER DISP) PO PRN (05:12)
[2018-02-21 05:23] VITALS: BP 110/67
== END 2018-02-21 05:23 | disposition home or self-care (01) ==
LOC: ER 04:02
DX: O99.351 Diseases of the nervous system complicating pregnancy, first trimester (principal); G89.29 Other chronic pain; M54.5 Low back pain; Z3A.01 Less than 8 weeks gestation of pregnancy
CPT/HCPCS: 99283; 96372; 81025; 81001; J3490; J2270

== ENCOUNTER 2018-02-22 15:38 | Emergency (ER) | payer SELFPAY ==
[2018-02-22 17:33] LABS: A TYPE INFLUENZA AG POSITIVE (NEGATIVE); B INFLUENZA AG NEGATIVE (NEGATIVE)
--- NOTE | 2018-02-22 18:21 | ER Document Report ---
Addendum entered and electronically signed by JEREMIAH FUENTES PA-C 02/22/18 18:37: Discharge - Discharge Clinical Impression: Influenza A Condition: Stable Disposition: HOME, SELF-CARE Instructions: Acetaminophen, Influenza ([facility]) [id number], Oral Narcotic Medication ([facility]) Additional Instructions: INFLUENZA: The physician feels that you have influenza -- the "flu". Influenza is an infection caused by a virus. Symptoms include generalized aching, fever, headache, dry cough, and fatigue. Some patients with the flu also have nausea, vomiting, and diarrhea. The fever and aches usually last two to four days, with the cough persisting another one to two weeks. Treatment of the flu, for the most part, is simply treatment of symptoms. Rest, drink plenty of fluids, and use acetaminophen for fever and aches. Do not take aspirin. There is an anti-viral medication, called Tamiflu, which may help in "type A" flu, but it's not helpful in every case of flu, and only works if started within the first 24 - 48 hours of the start of symptoms. The physician will determine whether this medication can help you. To prevent spread of the virus, use good handwashing. Shared toys should be cleaned with disinfectant. Clean the toilets, sinks, and counter surfaces in bathrooms. Launder clothing in hot water. What are conditions that should receive medical attention? The development of difficulty breathing. Lip color changes to blue or purple. Persistent vomiting and unable to keep liquids down with signs of dehydration such as: dizziness when standing, unable to urinate, or if child/infant is crying no tears are noticed. Is less responsive than normal or becomes confused. How do I decrease the spread of flu in my home? Taking care of the sick patient at home: Keep the sick person in a room separate from the common areas of the house. Keep the "sickroom" door closed. If the person with the flu needs to leave the home, they should cover their nose/mouth when coughing or sneezing and wear a disposable (surgical) mask if available. These masks may be available at your local pharmacy, medical supply a [employer] hardware store. If the sick person is in common areas of the house, have them wear a surgical mask. If possible, have the sick person use a separate bathroom that should be cleaned daily with a household disinfectant. If you are the caregiver: Avoid being face to face with the sick adult person as much as possible. Try to stay at least 6 feet away and wear a disposable surgical mask when possible. When holding small children who are sick, place their chin on your shoulder so that they will not cough in your face. Wash your hands after you touch the sick person or handle their tissues and laundry. Wear a mask if you leave home, as you may be infected from taking care of someone and not know it yet. Watch yourself and others in the home for flu symptoms and contact your doctor if symptoms occur. NOTE: Antiviral medication used to reduce the symptoms of the flu works only if taken within 48 hours, and best within 24 hours of symptom onset. Household Cleaning, laundry and waste disposal: Tissues and other disposable items used by the sick person should be thrown away in the trash. Wash your hands after touching these used items. No special waste disposal is required. Keep surfaces (especially bedside tables, bathroom surfaces, and toys for children) clean by wiping them down with a safe household disinfectant according to the directions on the product label. Per Center for Disease Control advice, most people will not receive testing to confirm flu. Also based on the person's health history and onset of symptoms, not all patients will receive prescriptions for antiviral medications. If you have questions related to this, please ask your healthcare provider. For more information, you can call the Centers for Disease Control and Prevention (CDC) Hotline at 9-666-[employer] This line is available in [place] and [place], 24 hours a day, 7 days a week. Or www.[employer] or www.cdc.gov Flu-Like Illness Home Instructions: The influenza virus infection can cause a wide rage of symptoms, including: Fever, cough, sore throat, body aches, headaches, chills, fatigue, with some patients reporting diarrhea and vomiting Like seasonal influenza A, H1N1 ("swine flu")in humans can vary in severity from mild to severe Severe illness with pneumonia, respiratory failure and even is possible Certain groups might be more likely to develop a severe illness from H1N1 infection. Sometimes bacterial infections may occur at the same time as or after infection with influenza viruses and lead to pneumonias, ear infections, or sinus infections. How Flu Spreads The main way that influenza viruses spread is through respiratory droplets of coughs and sneezes. This can happen when someone with the infection coughs or sneezes and the particles fly through the air and land on other people and surfaces. If the person covers their mouth and nose with their hand but does not wash their hands immediately, then these germs are passed onto the next object that they touch. People with Influenza A or suspected H1N1 (swine flu) who are cared for at home should: Check with their doctor about any special care that they might need if they are or have a health condition such as diabetes, heart disease, asthma or emphysema. Also, limit caregiver to one (if possible). women or those with chronic health conditions should not take care of the flu patient unless necessary. Check with their doctor about whether or not medications are needed that may lessen the symptoms of the flu. Stay at home until 24 hours fever free without the use of fever reducing medication. Get plenty of rest and avoid other healthy people in your home. Drink plenty of clear liquids to keep from getting dehydrated. Take medications like Tylenol (Acetaminophen), Advil/Motrin/Nuprin (Ibuprofen) or Aleve (Naproxen) for fevers and aches. All children under the age of 18 years of age should not take aspirin or products containing aspirin (e.g. Pepto Bismol), as this can cause a rare serious illness called Carlene Syndrome. Over the counter medications for flu and colds may help, but it is very important to follow the package directions. Remember that the medicine may help the symptoms, but it will not help prevent others from getting sick if they are around you. Cover coughs and sneezes using your bent arm. Clean hands with soap and water or an alcohol-based hand rub often, especially after using tissues to cough or sneeze. Encourage hand washing frequently for all people living in the home! The sick person should not have visitors other than caregivers. Encourage concerned loved ones to call instead of visit. Avoid close contact with others-do not go to work or school while sick. USE OF ACETAMINOPHEN (Tylenol): Acetaminophen may be taken for pain relief or fever control. It's much safer than aspirin, offering a wider range of "safe" dosages. It is safe during . Some brand names are Tylenol, Panadol, Datril, Anacin 3, Tempra, and Liquiprin. Acetaminophen can be repeated every four hours. The following are maximum recommended dosages: WEIGHT Dose Drops Elixir Chewable(8 0mg) (LBS.) drprs=droppers tsp=teaspoon 6 40 mg 0.4 ml (1/2) 6-11 80 mg 0.8 ml (full) tsp 1 tab 12-16 120 mg 1 1/2 drprs 3/4 tsp 1 1/2 tabs 17-23 160 mg 2 drprs 1 tsp 2 tabs 24-30 240 mg 3 drprs 1 1/2 tsp 3 tabs 30-35 320 mg 2 tsp 4 tabs 36-41 360 mg 2 1/4 tsp 4 1/2 tabs 42-47 400 mg 2 1/2 tsp 5 tabs 48-53 480 mg 3 tsp 6 tabs 54-59 520 mg 3 1/4 tsp 6 1/2 tabs 60-64 560 mg 3 1/2 tsp 7 tabs 65-70 600 mg 3 3/4 tsp 7 1/2 tabs 71-76 640 mg 4 tsp 8 tabs 77-82 720 mg 4 1/2 tsp 9 tabs 83-88 800 mg 5 tsp 10 tabs >89 pounds or adults 650 mg to 900 mg Acetaminophen can be repeated every four hours. Maximum dose not to exceed 4000 mg a day. These maximum recommended dosages are slightly higher than the dosages written on the product container, but these dosages are very safe and below the toxic dosage for acetaminophen. ORAL NARCOTIC MEDICATION: You have been given a prescription for pain control. This medication is a narcotic. It's best taken with food, as nausea can result if taken on an empty stomach. Don't operate machinery or drive within six hours of taking this medication. Do not combine this medicine with alcohol, or with any medication which can cause sedation (such as cold tablets or sleeping pills) unless you get permission from the physician. Narcotics tend to cause constipation. If possible, drink plenty of fluids and eat a diet high in fiber and fruits. Please be aware that prescription narcotics also have the potential for abuse. People become addicted to these medications because of the general sense of wellbeing that they induce. This feeling along with a significant reduction in tension, anxiety, and aggression provides a stimulating seductive quality to these drugs. Once your pain is under control, we encourage you to discard your unused narcotics. FOLLOW-UP CARE: If you have been referred to a physician for follow-up care, call the physicians office for an appointment as you were instructed or within the next two days. If you experience worsening or a significant change in your symptoms, notify the physician immediately or return to the Emergency Department at any time for re-evaluation. Prescriptions: Acetaminophen with Codeine [Tylenol #3 Tablet] 1 each PO Q4HP PRN #15 tablet PRN Reason: Promethazine HCl [Phenergan 25 mg Tablet] 25 mg PO Q4HP PRN #12 tablet PRN Reason: Oseltamivir Phosphate [Tamiflu 75 mg Capsule] 75 mg PO BID #10 capsule Pseudoephedrine HCl [Sudafed 12 Hour] 120 mg PO BID #20 tablet.er Forms: Special Work Note [facility]: [facility] [NO [facility]AL MD] - Follow up as needed Original Note: ED Flu Like - General Chief Complaint: Flu Symptoms Stated Complaint: FLU LIKE SYMPTOMS Time Seen by Provider: 02/22/18 16:07 Mode of Arrival: Ambulatory Information source: Patient Notes: Patient is a 33-year-old female comes emergency room with both her and her young son of 8 years old. Patient states that she started with symptoms on . She had congestion and severe cough. It has developed over the course of since into a high fever of greater than 101. As well as coughing fits that has caused her to vomit multiple times. Patient states she has tried taking Mucinex, TheraFlu and Motrin. Patient denies smoking her last menstrual period was on 02/06/2018 however she was seen here a day or so later for back problems and was diagnosed as being . Patient does not know how this occurred since the fact that she is on control. But the fact that she has. She denies any other medical problems. 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 TRAVEL OUTSIDE OF THE [place] IN LAST 30 DAYS: No - HPI Onset: Other - 3 days Timing/Duration: Constant, Worse Quality of pain: Achy Severity: Moderate Pain Level: 3 CO exposure: No Associated symptoms: Chills, Nonproductive cough, Fever, Headache, Rhinnorhea, Sinus pain/drainage, Sore throat, Weakness Similar symptoms previously: No Recently seen / treated by doctor: No - Related Data Allergies/Adverse Reactions: No Known Allergies Allergy (Verified 02/22/18 15:46) Past Medical History - General Information source: Patient - Social History Smoking Status: Never Smoker Cigarette use (# per day): No Chew tobacco use (# tins/day): No Smoking Education Provided: No Frequency of alcohol use: None Drug Abuse: None Lives with: Family, Spouse/Significant other Family History: Reviewed & Not Pertinent, Hypertension, Thyroid Disfunction Patient has suicidal ideation: No Patient has homicidal ideation: No Renal/ Medical History: Denies: Hx Peritoneal Dialysis Musculoskeletal Medical History: Reports Hx Arthritis, Reports Hx Musculoskeletal Deformity, Reports Hx Musculoskeletal Trauma - Immunizations Immunizations up to date: Yes Hx Diphtheria, Pertussis, Tetanus Vaccination: Yes - unknown Review of Systems - Review of Systems Constitutional: See HPI, Chills, Fever, Malaise, Weakness EENT: Ear pain, Nose congestion, Nose discharge, Sinus pressure, Throat pain Cardiovascular: No symptoms reported Respiratory: See HPI, Cough, Hurts to breathe Gastrointestinal: No symptoms reported Genitourinary: No symptoms reported Female Genitourinary: No symptoms reported Musculoskeletal: No symptoms reported Skin: No symptoms reported Hematologic/Lymphatic: No symptoms reported Neurological/Psychological: No symptoms reported -: Yes All other systems reviewed and negative Physical Exam - Vital signs Vitals: Temp Pulse Resp BP Pulse Ox 99.5 F 89 16 116/69 98 02/22/18 15:49 02/22/18 15:49 02/22/18 15:49 02/22/18 15:49 02/22/18 15:49 Interpretation: Normal - Notes Notes: PHYSICAL EXAMINATION: GENERAL: Patient is a well-nourished well-developed 33-year-old female although not in distress does appear ill. Patient gets into coughing fits that she can stop and has nearly vomited in the exam room. HEAD: Atraumatic, normocephalic. EYES: Pupils equal round and reactive to light, extraocular movements intact, conjunctiva are normal. ENT: Examination head and upper airway showed nasal mucosa to be very erythematous and edematous with rhinorrhea noted. Bilateral nasal congestion is also positive. Examination of the frontal maxillary sinuses show mild tenderness to palpation or percussion of both areas bilaterally. Also noted bilateral TMs are bulging with air-fluid levels. The external canals are moderate erythema but no exudates or major swelling noted in the external canal. Mild cerumen throughout but does not obstruct the vision of the TMs. Further examination of the oral cavity shows moderate amount of drainage in the posterior pharynx that is yellowish-green in color. Uvula is midline with erythema noted but no exudate. The airway is patent currently NECK: Normal range of motion, supple without lymphadenopathy LUNGS: Auscultation of lung robles show she has bilateral breath sounds with breath sounds increased throughout there is no rhonchi rales or wheeze noted. HEART: Regular rate and rhythm without murmurs Female : deferred Musculoskeletal: Normal range of motion, no pitting or edema. No cyanosis. NEUROLOGICAL: Normal speech, normal gait. Normal sensory, motor exams PSYCH: Normal mood, normal affect. SKIN: Warm, Dry, normal turgor, no rashes or lesions noted. Course - Re-evaluation Re-evalutation: 02/22/18 18:21 Patient was found to have influenza A positive. We have had a discussion since her was just recently noted that it is recommended that she take Tamiflu during the . I have left it up to the patient which she has agreed that she probably should since she is only 3 days into the exposure. I have informed her that 2 days is the best benefit but any benefit would probably be well for her she is agreed to take the Tamiflu. She was a little upset that I could not treat her with Tylenol with codeine to stop and suppress his cough which has it is a category C medication and I did have discussion with Dr. Matthews as well to see if he had any suggestions for treating the cough with a early and his thoughts were not similar to mine everything in is a category C basically and if she is getting into such severe coughing spells that if we do not treat those then she is I will that hurt herse lf or the so we will give her a few days of Tylenol with codeine and some nausea medication in case such things happen is the codeine reacts with her having nausea for . We will also put her on Sudafed which is a category B in and to try to dry up the secretions which were dry up the cough. - Vital Signs Vital signs: Temp Pulse Resp BP Pulse Ox 99.5 F 89 16 116/69 98 02/22/18 15:49 02/22/18 15:49 02/22/18 15:49 02/22/18 15:49 02/22/18 15:49 Discharge - Discharge Clinical Impression: Influenza A Condition: Stable Disposition: HOME, SELF-CARE Instructions: Acetaminophen, Influenza ([facility]) [id number], Oral Narcotic Medication ([facility]) Additional Instructions: INFLUENZA: The physician feels that you have influenza -- the "flu". Influenza is an infection caused by a virus. Symptoms include generalized aching, fever, headache, dry cough, and fatigue. Some patients with the flu also have nausea, vomiting, and diarrhea. The fever and aches usually last two to four days, with the cough persisting another one to two weeks. Treatment of the flu, for the most part, is simply treatment of symptoms. Rest, drink plenty of fluids, and use acetaminophen for fever and aches. Do not take aspirin. There is an anti-viral medication, called Tamiflu, which may help in "type A" flu, but it's not helpful in every case of flu, and only works if started within the first 24 - 48 hours of the start of symptoms. The physician will determine whether this medication can help you. To prevent spread of the virus, use good handwashing. Shared toys should be cleaned with disinfectant. Clean the toilets, sinks, and counter surfaces in bathrooms. Launder clothing in hot water. What are conditions that should receive medical attention? The development of difficulty breathing. Lip color changes to blue or purple. Persistent vomiting and unable to keep liquids down with signs of dehydration such as: dizziness when standing, unable to urinate, or if child/ is crying no tears are noticed. Is less responsive than normal or becomes confused. How do I decrease the spread of flu in my home? Taking care of the sick patient at home: Keep the sick person in a room separate from the common areas of the house. Keep the "sickroom" door closed. If the person with the flu needs to leave the home, they should cover their nose/mouth when coughing or sneezing and wear a disposable (surgical) mask if available. These masks may be available at your local pharmacy, medical supply and hardware store. If the sick person is in common areas of the house, have them wear a surgical mask. If possible, have the sick person use a separate bathroom that should be cleaned daily with a household disinfectant. If you are the caregiver: Avoid being face to face with the sick adult person as much as possible. Try to stay at least 6 feet away and wear a disposable surgical mask when possible. When holding small children who are sick, place their chin on your shoulder so that they will not cough in your face. Wash your hands after you touch the sick person or handle their tissues and laundry. Wear a mask if you leave home, as you may be infected from taking care of someone and not know it yet. Watch yourself and others in the home for flu symptoms and contact your doctor if symptoms occur. NOTE: Antiviral medication used to reduce the symptoms of the flu works only if taken within 48 hours, and best within 24 hours of symptom onset. Household Cleaning, laundry and waste disposal: Tissues and other disposable items used by the sick person should be thrown away in the trash. Wash your hands after touching these used items. No special waste disposal is required. Keep surfaces (especially bedside tables, bathroom surfaces, and toys for children) clean by wiping them down with a safe household disinfectant according to the directions on the product label. Per Center for Disease Control advice, most people will not receive testing to confirm flu. Also based on the person's health history and onset of symptoms, not all patients will receive prescriptions for antiviral medications. If you have questions related to this, please ask your healthcare provider. For more information, you can call the Centers for Disease Control and Prevention (CDC) Hotline at 9-014-[employer] This line is available in [place] and [place], 24 hours a day, 7 days a week. Or www[employer] or www.cdc.gov Flu-Like Illness Home Instructions: The influenza virus infection can cause a wide rage of symptoms, including: Fever, cough, sore throat, body aches, headaches, chills, fatigue, with some patients reporting diarrhea and vomiting Like seasonal influenza A, H1N1 ("swine flu")in humans can vary in severity from mild to severe Severe illness with pneumonia, respiratory failure and even is possible Certain groups might be more likely to develop a severe illness from H1N1 infection. Sometimes bacterial infections may occur at the same time as or after infection with influenza viruses and lead to pneumonias, ear infections, or sinus infections. How Flu Spreads The main way that influenza viruses spread is through respiratory droplets of coughs and sneezes. This can happen when someone with the infection coughs or sneezes and the particles fly through the air and land on other people and surfaces. If the person covers their mouth and nose with their hand but does not wash their hands immediately, then these germs are passed onto the next object that they touch. People with Influenza A or suspected H1N1 (swine flu) who are cared for at home should: Check with their doctor about any special care that they might need if they are or have a health condition such as diabetes, heart disease, asthma or emphysema. Also, limit caregiver to one (if possible). women or those with chronic health conditions should not take care of the flu patient unless necessary. Check with their doctor about whether or not medications are needed that may lessen the symptoms of the flu. Stay at home until 24 hours fever free without the use of fever reducing medication. Get plenty of rest and avoid other healthy people in your home. Drink plenty of clear liquids to keep from getting dehydrated. Take medications like Tylenol (Acetaminophen), Advil/Motrin/Nuprin (Ibuprofen) or Aleve (Naproxen) for fevers and aches. All children under the age of 18 years of age should not take aspirin or products containing aspirin (e.g. Pepto Bismol), as this can cause a rare serious illness called Carlene Syndrome. Over the counter medications for flu and colds may help, but it is very important to follow the package directions. Remember that the medicine may help the symptoms, but it will not help prevent others from getting sick if they are around you. Cover coughs and sneezes using your bent arm. Clean hands with soap and water or an alcohol-based hand rub often, especially after using tissues to cough or sneeze. Encourage hand washing frequently for all people living in the home! The sick person should not have visitors other than caregivers. Encourage concerned loved ones to call instead of visit. Avoid close contact with others-do not go to work or school while sick. USE OF ACETAMINOPHEN (Tylenol): Acetaminophen may be taken for pain relief or fever control. It's much safer than aspirin, offering a wider range of "safe" dosages. It is safe during . Some brand names are Tylenol, Panadol, Datril, Anacin 3, Tempra, and Liquiprin. Acetaminophen can be repeated every four hours. The following are maximum recommended dosages: WEIGHT Dose Drops Elixir Chewable(80mg) (LBS.) drprs=droppers tsp=teaspoon 6 40 mg 0.4 ml (1/2) 6-11 80 mg 0.8 ml (full) tsp 1 tab 12-16 120 mg 1 1/2 drprs 3/4 tsp 1 1/2 tabs 17-23 160 mg 2 drprs 1 tsp 2 tabs 24-30 240 mg 3 drprs 1 1/2 tsp 3 tabs 30-35 320 mg 2 tsp 4 tabs 36-41 360 mg 2 1/4 tsp 4 1/2 tabs 42-47 400 mg 2 1/2 tsp 5 tabs 48-53 480 mg 3 tsp 6 tabs 54-59 520 mg 3 1/4 tsp 6 1/2 tabs 60-64 560 mg 3 1/2 tsp 7 tabs 65-70 600 mg 3 3/4 tsp 7 1/2 tabs 71-76 640 mg 4 tsp 8 tabs 77-82 720 mg 4 1/2 tsp 9 tabs 83-88 800 mg 5 tsp 10 tabs >89 pounds or adults 650 mg to 900 mg Acetaminophen can be repeated every four hours. Maximum dose not to exceed 4000 mg a day. These maximum recommended dosages are slightly higher than the dosages written on the product container, but these dosages are very safe and below the toxic dosage for acetaminophen. ORAL NARCOTIC MEDICATION: You have been given a prescription for pain control. This medication is a narcotic. It's best taken with food, as nausea can result if taken on an empty stomach. Don't operate machinery or drive within six hours of taking this medication. Do not combine this medicine with alcohol, or with any medication which can cause sedation (such as cold tablets or sleeping pills) unless you get permission from the physician. Narcotics tend to cause constipation. If possible, drink plenty of fluids and eat a diet high in fiber and fruits. Please be aware that prescription narcotics also have the potential for abuse. People become addicted to these medications because of the general sense of wellbeing that they induce. This feeling along with a significant reduction in tension, anxiety, and aggression provides a stimulating seductive quality to these drugs. Once your pain is under control, we encourage you to discard your unused narcotics. FOLLOW-UP CARE: If you have been referred to a physician for follow-up care, call the physicians office for an appointment as you were instructed or within the next two days. If you experience worsening or a significant change in your symptoms, notify the physician immediately or return to the Emergency Department at any time for re-evaluation. Prescriptions: Acetaminophen with Codeine [Tylenol #3 Tablet] 1 each PO Q4HP PRN #15 tablet PRN Reason: Oseltamivir Phosphate [Tamiflu 75 mg Capsule] 75 mg PO BID #10 capsule Pseudoephedrine HCl [Sudafed 12 Hour] 120 mg PO BID #20 tablet.er Forms: Special Work Note Referrals: [facility] [NO LOCAL MD] - Follow up as needed
[2018-02-22 18:31] VITALS: BP 109/73
== END 2018-02-22 18:50 | disposition home or self-care (01) ==
LOC: ER 15:38
DX: J11.1 Influenza due to unidentified influenza virus with other respiratory manifestations (principal); R05 Cough; R68.89 Other general symptoms and signs; R53.81 Other malaise
CPT/HCPCS: 87804; 99283

== ENCOUNTER 2018-02-27 15:30 | Emergency (ER) | payer BC ==
[2018-02-27 16:01] VITALS: BP 115/72
--- NOTE | 2018-02-27 16:49 | ER Document Report ---
ED Medical Screen (RME) - General Chief Complaint: OB Problem (<20wks) Stated Complaint: CHECK Time Seen by Provider: 02/27/18 16:40 Notes: Patient is a 33-year-old female who presents to the emergency department requesting hCG testing. She states that she had an on 01/30/18. She reports she then started control pills on 01/31/18. She had intercourse on 02/08/18. She states she was seen here on 02/21/18 for flu symptoms and was told that her urine test was positive. Patient denies any symptoms today but wants to find out if the hormones are left in her body from previous or if the did not work. Exam: Alert, oriented and in no acute distress. Abdomen soft, nontender no guarding or rebound. I have greeted and performed a rapid initial assessment of this patient. A comprehensive ED assessment and evaluation of the patient, analysis of test results and completion of the medical decision making process will be conducted by additional ED providers. Dictation of this chart was performed using voice recognition software; therefore, there may be some unintended grammatical errors. TRAVEL OUTSIDE OF THE [place] IN LAST 30 DAYS: No - Related Data Allergies/Adverse Reactions: No Known Allergies Allergy (Verified 02/27/18 15:31) Past Medical History Renal/ Medical History: Denies: Hx Peritoneal Dialysis Musculoskeltal Medical History: Reports Hx Arthritis, Reports Hx Musculoskeletal Deformity, Reports Hx Musculoskeletal Trauma - Immunizations Immunizations up to date: Yes Hx Diphtheria, Pertussis, Tetanus Vaccination: Yes - unknown Physical Exam - Vital signs Vitals: Temp Pulse Resp BP Pulse Ox 98.9 F 71 16 115/72 99 02/27/18 16:00 02/27/18 16:00 02/27/18 16:00 02/27/18 16:00 02/27/18 16:00 Course - Vital Signs Vital signs: Temp Pulse Resp BP Pulse Ox 98.9 F 71 16 115/72 99 02/27/18 16:00 02/27/18 16:00 02/27/18 16:00 02/27/18 16:00 02/27/18 16:00
--- NOTE | 2018-02-27 19:08 | RADIOLOGY REPORT (SQ) ---
EXAM DESCRIPTION: U/S NON OB PEL TV W/DOPPLER COMPLETED DATE/TIME: 02/27/2018 6:48 pm REASON FOR STUDY: eval for retained placenta terminated 01/30/2019 COMPARISON: None. TECHNIQUE: Dynamic and static grayscale images acquired of the pelvis via transvaginal approach and recorded on PACS. Additional selected color Doppler and spectral images recorded. LIMITATIONS: None. FINDINGS: UTERUS: Contour normal. No mass. ENDOMETRIAL STRIPE: There is a highly vascular area in the fundal endometrial canal. CERVIX: 2.4 cm. RIGHT OVARY AND DOPPLER: Normal size. No worrisome masses. Normal arterial vascular flow without evid ence for torsion. LEFT OVARY AND DOPPLER: Normal size. No worrisome masses. 4.4 cm cyst. Normal arterial vascular wilian w without evidence for torsion. FREE FLUID: There is some free fluid. OTHER: No other significant finding. MEASUREMENTS: UTERUS: 8.1 x 4.6 cm. ENDOMETRIAL STRIPE: 14 mm. RIGHT OVARY: 2.4 x 1.1 x 2.9 cm. LEFT OVARY: 4.8 x 3.8 x 4.7 cm. IMPRESSION: Cannot exclude retained products of conception at the apex of the endometrial canal. Le ft ovarian cyst. This is almost certainly benign. No additional follow-up is required for this rossy quiroz. TECHNICAL DOCUMENTATION: JOB ID: [id number]- All Rights Reserved Rev-07/13 Reading location - IP/workstation name: [email or web address]
[2018-02-27] MEDS ORDERED: ALBUTEROL SULFATE HFA (90 MCG/PUFF) 8 GM MDI (1 MDI/ER DISP) IH PRN (20:01)
--- NOTE | 2018-02-27 20:01 | ER Document Report ---
ED General - General TRAVEL OUTSIDE OF THE [place] IN LAST 30 DAYS: No - General Chief Complaint: OB Problem (<20wks) Stated Complaint: CHECK Time Seen by Provider: 02/27/18 16:40 Notes: Patient is a 33-year-old female who presents to the emergency department to have her labs checked to see if her was completely terminated. She had an on January 30, but on her last visit with flulike symptoms here in the emergency department, she still had a positive hCG level. [facility] and [facility] told her she needed to return to the emergency department to have her labs drawn. She denies any symptoms, but states she has had flu symptoms, so she is unsure if she was truly feeling the symptoms. (BHAVYA ONOFRE) - Related Data Allergies/Adverse Reactions: No Known Allergies Allergy (Verified 02/27/18 15:31) Past Medical History - General Information source: Patient - Social History Smoking Status: Never Smoker Chew tobacco use (# tins/day): No Frequency of alcohol use: None Drug Abuse: None Family History: Reviewed & Not Pertinent, Hypertension, Thyroid Disfunction Patient has suicidal ideation: No Patient has homicidal ideation: No Renal/ Medical History: Denies: Hx Peritoneal Dialysis Musculoskeletal Medical History: Reports Hx Arthritis, Reports Hx Musculoskeletal Deformity, Reports Hx Musculoskeletal Trauma - Immunizations Immunizations up to date: Yes Hx Diphtheria, Pertussis, Tetanus Vaccination: Yes - unknown Review of Systems - Review of Systems Notes: REVIEW OF SYSTEMS: CONSTITUTIONAL : Denies recent illness. Denies recent unintentional weight loss. Denies fever, chills, or sweats. EENT: Denies eye, ear, throat, or mouth pain, discharge, or symptoms. Denies nasal or sinus congestion. CARDIOVASCULAR: Denies chest pain. RESPIRATORY: Denies shortness of breath, cough, congestion, difficulty breathing, or wheezing. GASTROINTESTINAL: Denies nausea, vomiting, and diarrhea. Denies abdominal pain. Denies constipation. GENITOURINARY: Denies difficulty urinating, burning, blood in urine, urgency or frequency. MUSCULOSKELETAL: Denies neck and back pain. Denies joint pain or swelling. SKIN: Denies rash, itchiness, or lesions HEMATOLOGIC : Denies easy bruising or bleeding. LYMPHATIC: Denies swollen, painful, enlarged glands. NEUROLOGICAL: Denies no numbness or tingling denies weakness. Denies headache. Denies altered mental status. Denies alteration in speech. PSYCHIATRIC: Denies stress, anxiety, alteration in sleep patterns, or depression. All other systems reviewed and negative. (BHAVYA ONOFRE) Physical Exam - Vital signs Vitals: Temp Pulse Resp BP Pulse Ox 98.9 F 71 16 115/72 99 02/27/18 16:00 02/27/18 16:00 02/27/18 16:00 02/27/18 16:00 02/27/18 16:00 - Notes Notes: PHYSICAL EXAMINATION: GENERAL: Appears well, healthy, well-nourished, no acute distress. HEAD: Normocephalic, atraumatic. EYES: PERRL, conjunctiva normal, all extraocular movements intact, sclera nonicteric ENT: Moist mucous membranes. NECK: Supple, no noticeable swelling, redness, rash. Normal range of motion. LUNGS: Slight wheezes noted to left lung field. Right lung field clear. CARDIOVASCULAR: S1-S2, regular rate, regular rhythm. Radial pulses 2+, normal. ABDOMEN: Normoactive bowel sounds. Soft, nontender, no guarding, no rebound tenderness, and no masses palpated. EXTREMITIES: Normal strength and range of motion, no pitting or edema. No cyanosis. NEUROLOGICAL: Moves all extremities upon command. Strength 5/5 in all extremities. PSYCH: Normal mood, normal affect. SKIN: Warm, dry. No rash, lesions, ulcerations noted. Normal skin turgor. (BHAVYA ONOFRE) Course - Re-evaluation Re-evalutation: 02/27/18 20:03 Patient's hCG is 66. On her ultrasound she apparently may have remnants of conception in her uterus. These findings were discussed with the patient. She will be followed up with [facility] in regards to this issue. She also has expiratory wheezes on examination of her lungs. She will be given an albuterol inhaler for her wheezes. Verbal discharge instructions were given to the patient. They verbalized understanding. They are stable for discharge. (BHAVYA ONOFRE) 02/27/18 23:47 Jarek Mcmullen D.O. was one of the attending physicians on duty at the time the patient visited the ED. The patient was evaluated and treated by the Physician Mechanical Service Specialist/ Nurse Practitioner. I did not personally see or evaluate the patient. I was consulted by the PA/APPEALS ANALYST and assisted in decision making and disposition. (JAREK MENDOZA) - Vital Signs Vital signs: Temp Pulse Resp BP Pulse Ox 98.9 F 71 16 115/72 99 02/27/18 16:00 02/27/18 16:00 02/27/18 16:00 02/27/18 16:00 02/27/18 16:00 - Laboratory Laboratory results interpreted by me: 02/27/18 02/27/18 17:00 17:00 Serum HCG, Qual POSITIVE H Beta HCG, Quant 66.12 H Discharge - Discharge Clinical Impression: Follow-up visit after therapeutic Condition: Stable Disposition: HOME, SELF-CARE Additional Instructions: You were seen today in the emergency department for a follow-up on your . Your labs show that your hCG is 66. The ultrasound shows that you could possibly have retained products of conception in your endometrial canal. Please follow-up with [facility] in regards to this emergency department visit. If you develop a fever greater than 100.4 F, have severe abdominal pain, or have any symptoms that are worrisome to you, please return to the emergency department. Referrals: [facility] [Provider Group] - Follow up in 3-5 days
== END 2018-02-27 20:30 | disposition home or self-care (01) ==
LOC: ER 15:30
DX: Z33.2 Encounter for elective termination of pregnancy (principal); R06.2 Wheezing
CPT/HCPCS: 36415; 76830; 84702; 84703; 93976; 99284

== ENCOUNTER 2018-06-13 23:38 | Emergency (ER) | payer BC ==
[2018-06-13 23:52] VITALS: BP 113/89
== END 2018-06-14 02:00 | disposition left against medical advice (07) ==
LOC: ER 23:38
DX: Z53.21 Procedure and treatment not carried out due to patient leaving prior to being seen by health care provider (principal); M54.9 Dorsalgia, unspecified

== ENCOUNTER → 2018-11-21 | Outpatient (CLI) | payer BC | LOC: OD 16:37 | PROVIDERS: ATTEND Obstetrics & Gynecology | DX: O36.80X0 Pregnancy with inconclusive fetal viability, not applicable or unspecified (principal); Z3A.00 Weeks of gestation of pregnancy not specified | CPT/HCPCS: 36415; 84144; 84702; 86900; 86901 ==

== ENCOUNTER → 2019-03-26 | Outpatient (CLI) | payer BC ==
--- NOTE | 2019-03-26 16:48 | RADIOLOGY REPORT (SQ) ---
EXAM DESCRIPTION: MRI LUMBAR SPINE WITHOUT COMPLETED DATE/TIME: 03/26/2019 4:18 pm REASON FOR STUDY: M54.5 LOW BACK PAIN M54.5 LOW BACK PAIN COMPARISON: 11/24/2014 TECHNIQUE: Sagittal and Axial imaging includes T1, T2, STIR and gradient echo sequences. Coronal T2/ HASTE imaging. LIMITATIONS: Motion. FINDINGS: VISUALIZED UPPER ABDOMEN: Limited evaluation. No acute or suspicious findings suggested. SEGMENTATION: No transitional anatomy. The lowest well-developed disc space is labeled L5-S1. ALIGNMENT: Anatomic. VERTEBRAE: Intact. BONE MARROW: Normal. No marrow replacement or reactive changes. DISC SIGNAL: Normal. No significant abnormal signal or loss of height. POSTERIOR ELEMENTS: Generally intact. No pars defect evident. HARDWARE: None in the spine. CORD AND CONUS: Normal in size and signal intensity. Conus at the appropriate level. SOFT TISSUES: No aortic aneurysm seen. No bulky retroperitoneal adenopathy or mass. No paraspinal mas s or fluid. L1-L2: No significant spinal stenosis or exit foraminal stenosis. L2-L3: No significant spinal stenosis or exit foraminal stenosis. L3-L4: No significant spinal stenosis or exit foraminal stenosis. L4-L5: No significant spinal stenosis or exit foraminal stenosis. L5-S1: Left paracentral annular fissure and facet arthropathy. No significant stenosis LOWER THORACIC: Incompletely imaged. No stenosis seen. SACRUM: Visualized upper sacrum intact. OTHER: No other significant findings. IMPRESSION: Facet arthropathy. Annular fissure L5-S1. TECHNICAL DOCUMENTATION: JOB ID: [id number] [employer]- All Rights Reserved Reading location - IP/workstation name: [email or web address]
== END ==
LOC: RAD 15:30
PROVIDERS: ATTEND Physician Assistant
DX: M54.5 Low back pain (principal); M47.897 Other spondylosis, lumbosacral region
CPT/HCPCS: 72148

== ENCOUNTER 2019-04-16 17:51 | Emergency (ER) | payer BC ==
[2019-04-16] MEDS ORDERED: HYDROCODONE/ACETAMINOPHEN 5-325 MG TABLET PO ONE (18:29)
--- NOTE | 2019-04-16 18:29 | ER Document Report ---
HPI - HPI Time Seen by Provider: 04/16/19 18:23 Context: 34 y/o female presents for toothache that started at 4pm. Pt states she tried to call dentists but "none of them take walkins." States radiates to ear. Denies fever. - REPRODUCTIVE Reproductive: DENIES: : Past Medical History - General Information source: Patient - Social History Smoking Status: Unknown if Ever Smoked Family History: Reviewed & Not Pertinent, Hypertension, Thyroid Disfunction Renal/ Medical History: Denies: Hx Peritoneal Dialysis Musculoskeletal Medical History: Reports Hx Arthritis, Reports Hx Musculoskeletal Deformity, Reports Hx Musculoskeletal Trauma - Immunizations Immunizations up to date: Yes Hx Diphtheria, Pertussis, Tetanus Vaccination: Yes - unknown Vertical Provider Document - CONSTITUTIONAL Agree With Documented VS: Yes Notes: GENERAL: Well-appearing, well-nourished and in no acute distress. HEAD: Atraumatic, normocephalic. EYES: Pupils equal round and reactive to light, extraocular movements intact, sclera anicteric, conjunctiva are normal. ENT: Oropharynx clear without exudates. Moist mucous membranes. Gum swelling to tooth #30 with caries. Dental decay throughout. No obvious abscess. NECK: Normal range of motion, supple without lymphadenopathy or JVD. EXTREMITIES: Normal range of motion, no pitting or edema. No clubbing or cyanosis. NEUROLOGICAL: Cranial nerves II through XII grossly intact. Normal speech, normal gait. PSYCH: Normal mood, normal affect. SKIN: Warm, Dry, normal turgor, no rashes or lesions noted. - INFECTION CONTROL TRAVEL OUTSIDE OF THE [place] IN LAST 30 DAYS: No Course - Re-evaluation Re-evalutation: 04/16/19 Nontoxic, well appearing 34 y/o female presents for toothache. Gum swelling seen at #30 with no obvious abscess. Dental caries throughout. Pt prescribed Penicillin and given to go pack of [place]. Pt also given referral to dentists. Pt given return precautions. Pt voices understanding and agrees with plan of care. - Vital Signs Vital signs: Temp Pulse Resp BP Pulse Ox 98.4 F 91 16 107/72 100 04/16/19 17:59 04/16/19 17:59 04/16/19 17:59 04/16/19 17:59 04/16/19 17:59 Discharge - Discharge Clinical Impression: Pain, dental, Dental caries Condition: Stable Disposition: HOME, SELF-CARE Instructions: Toothache ([facility]), Penicillin V K ([facility]), Oral Narcotic Medication ([facility]) Additional Instructions: Please take penicillin as prescribed and finish all doses even if you feel better. Please take ibuprofen as prescribed. Take [place] as needed for breakthrough pain, do not drink/drive while taking as it may make you drowsy. P jaime follow up with your dentist or one of the dentists listed in 1 week. Return to ER for any worsening symptoms, including facial swelling, fever, inability to swallow, shortness of breath, chest pain, or any other symptoms that are concerning for you. Prescriptions: Ibuprofen [Motrin 800 mg Tablet] 800 mg PO Q8H PRN #30 tab PRN Reason: Penicillin V Potassium [Penicillin Vk 500 mg Tablet] 500 mg PO QID #28 tablet Referrals: MAHAMED PATTON PA [Primary Care Provider] - Follow up in 3-5 days JEREMIAH LEARY [facility] [NO LOCAL MD] - Follow up as needed BRAULIO SILVA D[facility] [NO LOCAL MD] - Follow up as needed RAUL BARRERA DDS [NO LOCAL MD] - Follow up as needed SAVANAH LAYTON DMD [NO LOCAL MD] - Follow up as needed APOLONIA TOMPKINS DDS [ACTIVE STAFF] - Follow up as needed KENDALL HUNT [facility] [NO LOCAL MD] - Follow up as needed
[2019-04-16] MEDS ORDERED: HYDROCODONE/ACETAMINOPHEN 5-325 MG (6 TAB/ER DISP) PO PRN (18:46)
[2019-04-16 19:04] VITALS: BP 123/58
== END 2019-04-16 19:02 | disposition home or self-care (01) ==
LOC: ER 17:51
DX: K02.9 Dental caries, unspecified (principal); K08.89 Other specified disorders of teeth and supporting structures
CPT/HCPCS: 99282

== ENCOUNTER → 2019-05-19 | Outpatient (CLI) | payer BC ==
[2019-05-19 09:32] LABS: A TYPE INFLUENZA AG NEGATIVE (NEGATIVE); B INFLUENZA AG NEGATIVE (NEGATIVE)
== END ==
LOC: RDC 08:39
PROVIDERS: ATTEND Registered Nurse
DX: Z20.828 Contact with and (suspected) exposure to other viral communicable diseases (principal)
CPT/HCPCS: 36415; 87070; 87635; 87804; 87880

== ENCOUNTER 2019-10-07 16:31 | Outpatient (CLI) | payer BC ==
[2019-10-07] MEDS ORDERED: RINGERS SOLUTION,LACTATED 1,000 ML IV PRN (17:02)
[2019-10-07 17:27] LABS: APPEARANCE,URINE CLEAR; BILIRUBIN,URINE NEGATIVE (NEGATIVE); COLOR,URINE STRAW; GLUCOSE, URINE NEGATIVE (NEGATIVE); KETONES,URINE NEGATIVE (NEGATIVE); LEUKOCYTE ESTERASE,URINE LARGE (NEGATIVE); NITRITE,URINE NEGATIVE (NEGATIVE); PROTEIN,URINE NEGATIVE (NEGATIVE); URINE SPECIFIC GRAVITY 1.009; UROBILINOGEN,URINE NEGATIVE mg/dL (<2.0)
[2019-10-07 17:53] LABS: URINE BARBITURATES SCREEN NEGATIVE; URINE BENZODIAZEPINES SCREEN NEGATIVE; URINE COCAINE SCREEN NEGATIVE; URINE MARIJUANA (THC) SCREEN NEGATIVE; URINE METHADONE SCREEN NEGATIVE; URINE PHENCYCLIDINE SCREEN NEGATIVE
[2019-10-07 17:57] LABS: URINE AMPHETAMINES SCREEN NEGATIVE
--- NOTE | 2019-10-07 18:03 | RADIOLOGY REPORT (SQ) ---
EXAM DESCRIPTION: U/S OB LIMITED IMAGES COMPLETED DATE/TIME: 10/07/2019 5:45 pm REASON FOR STUDY: 28wks ctx, cervical length COMPARISON: None. TECHNIQUE: Limited transabdominal grayscale ultrasound for evaluation of specific requested obstetri rosalina parameters. LIMITATIONS: None. FINDINGS: CERVICAL LENGTH: 4.1 cm. Closed. GUDELIA: 14.6 cm. FHR: 141 beats per minute. PRESENTATION: Breech. PLACENTA: Anterior. Grade 2 ANATOMY: Not assessed OTHER: Gestational age by ultrasound 27 weeks 4 days IMPRESSION: LIMITED OBSTETRICAL ULTRASOUND WITH MEASURED PARAMETERS DELINEATED ABOVE. Trimester of : Second trimester - 13 weeks 1 day to 27 weeks 6 days. TECHNICAL DOCUMENTATION: JOB ID: [id number] [employer]- All Rights Reserved Reading location - IP/workstation name: [email or web address]
[2019-10-07] MEDS ORDERED: CEFTRIAXONE INJ 1000 MG VIAL IV ONE (18:09)
[2019-10-07] MEDS ORDERED: CEFTRIAXONE INJ 1000 MG VIAL ONE (18:13)
== END 2019-10-07 19:00 | disposition home or self-care (01) ==
LOC: LC 16:31
PROVIDERS: ATTEND Obstetrics & Gynecology
DX: O23.42 Unspecified infection of urinary tract in pregnancy, second trimester (principal); O26.892 Other specified pregnancy related conditions, second trimester; E86.0 Dehydration; Z3A.27 27 weeks gestation of pregnancy
CPT/HCPCS: 81001; 80307; 76815; 59899; J0696

== ENCOUNTER 2019-11-11 02:18 | Outpatient (CLI) | payer BC, MEDICAID ==
[2019-11-11 02:51] LABS: APPEARANCE,URINE CLEAR; BILIRUBIN,URINE NEGATIVE (NEGATIVE); COLOR,URINE COLORLESS; GLUCOSE, URINE NEGATIVE (NEGATIVE); KETONES,URINE NEGATIVE (NEGATIVE); LEUKOCYTE ESTERASE,URINE NEGATIVE (NEGATIVE); NITRITE,URINE NEGATIVE (NEGATIVE); PROTEIN,URINE NEGATIVE (NEGATIVE); URINE SPECIFIC GRAVITY 1.002; UROBILINOGEN,URINE NEGATIVE mg/dL (<2.0)
[2019-11-11 03:06] LABS: URINE AMPHETAMINES SCREEN NEGATIVE; URINE BARBITURATES SCREEN NEGATIVE; URINE BENZODIAZEPINES SCREEN NEGATIVE; URINE COCAINE SCREEN NEGATIVE; URINE MARIJUANA (THC) SCREEN NEGATIVE; URINE METHADONE SCREEN NEGATIVE; URINE PHENCYCLIDINE SCREEN NEGATIVE
--- NOTE | 2019-11-11 03:42 | Non Stress Test Report ---
Non Stress Test Datetime Report Generated by CPN: 11/11/2019 03:42 DEMOGRAPHIC EGA NST: 32.4 INDICATION Indication for Study (NST) Other: labor check MONITORING Monitor Explained: Monitor Explained; Test Explained; Patient Verbalized Understanding Time on Monitor: 11/11/2019 02:40 Time off Monitor: 11/11/2019 03:25 NST Duration: 45 NST INTERVENTIONS NST Interventions: PO Hydration Physician Notified NST: Dr. Celso BABY A: [id number] BABY A Movement : Present Contraction Frequency : none FHR Baseline : 130 Accelerations : 15X15 Decelerations : None Variability : Moderate 6-25bpm NST Review: Meets Criteria for Reactive NST NST Review and Verified By : Jac Anderson RN NST Results: Reactive NST REPORT Report Trigger: Send Report
== END 2019-11-11 03:30 | disposition home or self-care (01) ==
LOC: LC 02:18
PROVIDERS: ATTEND Obstetrics & Gynecology
DX: O99.89 Other specified diseases and conditions complicating pregnancy, childbirth and the puerperium (principal); M54.9 Dorsalgia, unspecified; Z3A.32 32 weeks gestation of pregnancy; Z02.83 Encounter for blood-alcohol and blood-drug test
CPT/HCPCS: 59025; 80307; 81001

== ENCOUNTER 2019-11-11 03:41 | Emergency (ER) | payer BC, MEDICAID | END 2019-11-11 04:15 | disposition left against medical advice (07) | LOC: ER 03:41 | DX: Z53.21 Procedure and treatment not carried out due to patient leaving prior to being seen by health care provider (principal) ==

== ENCOUNTER 2019-12-11 10:18 | Outpatient (CLI) | payer BC, MEDICAID ==
[2019-12-11 11:17] LABS: APPEARANCE,URINE SLIGHTLY-CLOUDY; BILIRUBIN,URINE NEGATIVE (NEGATIVE); COLOR,URINE STRAW; GLUCOSE, URINE NEGATIVE (NEGATIVE); KETONES,URINE NEGATIVE (NEGATIVE); LEUKOCYTE ESTERASE,URINE TRACE (NEGATIVE); NITRITE,URINE NEGATIVE (NEGATIVE); PROTEIN,URINE NEGATIVE (NEGATIVE); URINE SPECIFIC GRAVITY 1.005; UROBILINOGEN,URINE NEGATIVE mg/dL (<2.0)
[2019-12-11 12:14] LABS: URINE AMPHETAMINES SCREEN NEGATIVE; URINE BARBITURATES SCREEN NEGATIVE; URINE BENZODIAZEPINES SCREEN NEGATIVE; URINE COCAINE SCREEN NEGATIVE; URINE MARIJUANA (THC) SCREEN NEGATIVE; URINE METHADONE SCREEN NEGATIVE; URINE PHENCYCLIDINE SCREEN NEGATIVE
== END 2019-12-11 11:55 | disposition home or self-care (01) ==
LOC: LC 10:18
PROVIDERS: ATTEND Obstetrics & Gynecology Gynecology
DX: O26.893 Other specified pregnancy related conditions, third trimester (principal); R10.9 Unspecified abdominal pain; Z3A.36 36 weeks gestation of pregnancy
CPT/HCPCS: 59025; 80307; 81001; 84112

== ENCOUNTER 2020-01-05 14:50 | Outpatient (CLI) | payer BC, MEDICAID ==
--- NOTE | 2020-01-05 15:29 | Non Stress Test Report ---
Non Stress Test Datetime Report Generated by CPN: 01/05/2020 15:29 DEMOGRAPHIC Test Number: 2 EGA NST: 40.3 EGA NST: 36.6 INDICATION Indication for Study (NST) Other: Postdates, Repeat NST from [facility] Indication for Study (NST) Other: LC ordered by provider VITAL SIGNS Temperature - NST: 97.9 Temperature - NST: 98.2 Pulse - NST: 100 Pulse - NST: 81 RESP - NST: 16 RESP - NST: 16 NBPSYS NST: 111 NBPSYS NST: 120 NBPDIA NST: 79 NBPDIA NST: 70 MONITORING Monitor Explained: Monitor Explained; Test Explained; Patient Verbalized Understanding Monitor Explained: Monitor Explained; Test Explained; Patient Verbalized Understanding Time on Monitor: 01/05/2020 15:01 Time on Monitor: 12/11/2019 10:45 Time off Monitor: 01/05/2020 15:22 NST Duration: 21 NST INTERVENTIONS NST Interventions: None NST Interventions: PO Hydration; Reposition Patient Physician Notified NST: Princess Cody CNm (Annotations: Data stored by [facility] on behalf of user) BABY A: [id number] BABY A Movement : Present Movement : Present Contraction Frequency : Rare FHR Baseline : 140 Accelerations : 15X15 Decelerations : None Variability : Moderate 6-25bpm NST Review: Meets Criteria for Reactive NST NST Review: Meets Criteria for Reactive NST NST Review and Verified By : NANCY Collins NST Review and Verified By : Doug Card RN NST Results: Reactive NST Results: Reactive NST REPORT Report Trigger: Send Report
--- OUTSIDE RECORDS SUMMARY | 2020-01-08 17:42 | XMS REPORT ---
:1985 [facility] [address] [place] [address] Care Team Providers Name Role Phone [place] Attending Clinician Unavailable Wayne Attending Clinician Unavailable THEO Attending Clinician Unavailable TIM Attending Clinician Unavailable CHRYSTAL PROCUREMENT COORDINATOR-BC Attending Clinician Unavailable Allergies, Adverse Reactions, Alerts This patient has no known allergies or adverse reactions. Medications Ordered Filled Start Stop Current Ordering Indication Dosage Frequency Signature Comments Components Medication Medication Date Date Medication? Clinician (SIG) Name Name Ibuprofen Yes 06-24 15:44: 29 Cyclobenzap Yes Charly 10 Three rine Hcl 08-21 Automatic Coil Machine Operator-Bc Times Per (Flexeril*) 00:00: Green Day as 10 Mg Tab 00 needed for Muscle Spasm Naproxen Yes Charly 500 Twice Per (Naprosyn*) 08-21 Automatic Coil Machine Operator-Bc Day 500 Mg 00:00: Green Tablet 00 Prednisone Yes Charly 10 Taper 7 (Deltasone 08-21 Automatic Coil Machine Operator-Bc Day Taper*) 10 00:00: Green Mg Tablet 00 Cymbalta 30 No 1capsul Q1D Cymbalta mg e(s) 30 mg capsule,del capsule,de ayed layed release release Take 1 Take 1 capsule capsule every day every day by oral by oral route. route. Duexis 800 No 1 TID Duexis 800 mg-26.6 mg mg-26.6 mg tablet Take tablet 1 tablet 3 Take 1 times a day tablet 3 by oral times a route as day by needed for oral route 30 days. as needed for 30 days. duloxetine No duloxetine 30 mg 30 mg capsule,del capsule,de ayed layed release release Take 1 Take 1 capsule capsule every day every day by oral by oral route. route. IBU 800 mg No 1 TID IBU 800 mg tablet Take tablet 1 tablet 3 Take 1 times a day tablet 3 by oral times a route. day by oral route. Lyrica 50 No 1capsul TID Lyrica 50 mg capsule e(s) mg capsule Take 1 Take 1 capsule 3 capsule 3 times a day times a by oral day by route as oral route directed as for 30 directed days. for 30 days. Tylenol 325 No Tylenol mg capsule 325 mg Take by capsule oral route. Take by oral route. amitriptyli No 1 Q1D amitriptyl ne 10 mg ine 10 mg tablet Take tablet 1 tablet Take 1 every day tablet by oral every day route at by oral bedtime. route at bedtime. Cymbalta 60 No 1capsul Q1D Cymbalta mg e(s) 60 mg capsule,del capsule,de ayed layed release release Take 1 Take 1 capsule capsule every day every day by oral by oral route. route. cyclobenzap No cyclobenza rine 10 mg merissa 10 tablet Take mg tablet 1 tablet 3 Take 1 times a day tablet 3 by oral times a route as day by needed. oral route as needed. doxylamine No doxylamine 10 10 mg-pyridoxi mg-pyridox ne (vit B6) ine (vit 10 mg B6) 10 mg tablet,emir tablet,del yed release ayed release ferrous No 1 Q1D ferrous sulfate 325 sulfate mg (65 mg 325 mg (65 iron) mg iron) tablet Take tablet 1 tablet Take 1 every day tablet by oral every day route for by oral 90 days. route for 90 days. hydroxyzine No hydroxyzin HCl 25 mg e HCl 25 tablet mg tablet meloxicam No meloxicam 15 mg 15 mg tablet Take tablet 1 tablet Take 1 every day tablet by oral every day route with by oral meals for route with 30 days. meals for 30 days. oxycodone-a No oxycodone- cetaminophe acetaminop n 10 mg-325 hen 10 mg tablet mg-325 mg TK 1 T PO tablet TK TID PRN 1 T PO TID PRN oxycodone-a No 1 TID oxycodone- cetaminophe acetaminop n 7.5 hen 7.5 mg-325 mg mg-325 mg tablet Take tablet 1 tablet 3 Take 1 times a day tablet 3 by oral times a route for day by 21 days. oral route for 21 days. 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 00:00: major 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 Depression Lumbago Lumbago Problem Active with with 5-05 sciatica Sciatica 00:00: 00 Chronic Chronic Problem Active pain Pain 5-05 syndrome Syndrome 00:00: 00 Prolapsed Prolapsed Problem Active lumbar Lumbar 5-05 interverteb Interverteb 00:00: ral disc ral Disc 00 Chronic low Chronic Low Problem Active 2018-02 back pain Back Pain 2-26 00:00: 00 Low back Low Back Problem Active pain Pain 1-11 00:00: 00 Back pain Problem Active 6-26 21:23: 00 Fibroadenom Fibroadenom Problem Active a of breast a of Breast Dental Dental Problem Active caries Caries Lateral Lateral Problem Active epicondylit Epicondylit is is Procedures Procedure Date / Time Performed Performing Clinician Bronwyn carbajal pulse oximetry (PROC) 2019-12-09 00:00:00 OFFICE/OUTPATIENT VISIT, EST 2019-04-25 14:15:00 OFFICE/OUTPATIENT VISIT, EST 2019-03-27 08:00:00 OFFICE/OUTPATIENT VISIT, EST 2019-03-20 08:00:00 OFFICE/OUTPATIENT VISIT, NEW 2019-02-14 08:05:00 MRI, lumbar spine, w/o contrast 2018-03-19 00:00:00 XR, lumbar spine 2018-03-08 00:00:00 Knee Surgery Results Test Description Test Time Test Comments Text Results Atomic Results Result Comments RADIOLOGY 2017-08-[address] 21:14:00 [place] [address] --- - Patient: LUIS GARCIA : 1985 Sex: F Address: [address] [place] [address] [place] [address] [id number] Unit #: [id number] [facility] SEQ #: [id number] Location: [facility] [place] Room #: Ordering: CHARLY JARRELL [facility]- Diagnosis: BACK PAIN --- - LUMBAR SPINE Exam: 3 views of the lumbar spine Date of Exam: 08/21/2017 Indications: Back pain Comparison: None Findings: There are five non- ri b bearing vertebral bodies which show normal alignment and are without evidence of fracture or subluxation. The vertebral body heights and disc spaces are well maintained. The visualized bony pelvis appears intact. Impression: No acute osseous abnormality is identified. Final report electronically s igned by: Julienne Lazar MD Signed by: TARYN LAZAR MD 08/21/172109 cc: CHARLY JARRELL [facility]- TARYN LAZAR MD Urine Glucose (UA) 2017-08-21 19:39:00 Test Item Value Reference Range Comments Urine glucose detection (test code = 2349-9) NEGATIVE NEG ATIVE Urine [id number] 19:39:00 Test Item Value Reference Range Comments Urine ketones detection (test code = 09491-6) NEGATIVE NE GATIVE Urine [id number] 19:39:00 Test Item Value Reference Range Comments Urine urobilinogen measurement (test code = 95378-9) NORMAL NORMAL Urine [id number] 19:39:00 Test Item Value Reference Range Comments Urine bilirubin detection (test code = 1977-8) NEGATIVE N EGATIVE Urine [id number] 19:39:00 Test Item Value Reference Range Comments Urine blood detection (test code = 20384-9) NEGATIVE NEGA TIVE Urine Culture [id number] 19:39:00 Test Item Value Reference Range Comments UA + culture (test code = 53326-1) YES Urine Squamous Epithelial [id number] 19:39:00 Test Item Value Reference Range Comments Urine squamous epithelial cells detection by automated 1-5 0-3 method (test code = 55611-1) Urine [id number] 19:39:00 Test Item Value Reference Range Comments Mucus detection in urine sediment by light microscopy SMALL (test code = 8247-9) Urine [id number] 19:39:00 Test Item Value Reference Range Comments Urine color determination (test code = 5778-6) YELLOW Urine [id number] 19:39:00 Test Item Value Reference Range Comments Urine clarity determination (test code = 68824-1) CLEAR Urine Specific [id number] 19:39:00 Test Item Value Reference Range Comments Specific gravity of Urine by Refractometry automated 1.019 1.005-1.030 (test code = 66801-3) Urine [id number] 19:39:00 Test Item Value Reference Range Comments Urine pH (test code = 2756-5) 5.5 4.7-8.0 Urine [id number] 19:39:00 Test Item Value Reference Range Comments Urine leukocyte esterase detection by automated test 0-3 0-3 strip (test code = 76944-4) Urine [id number] 19:39:00 Test Item Value Reference Range Comments Urine nitrite detection (test code = 29785-6) NEGATIVE NE GATIVE Urine [id number] 19:39:00 Test Item Value Reference Range Comments Urine protein detection (test code = 2887-8) NEGATIVE NEG -TRACE Assessments Condition Name Status Diagnosis Date Treating Clinici an Chronic pain syndrome Active 2019-12-30 07:20:15 Medication monitoring Active 2019-12-30 07:20:15 Chronic low back pain Active 2019-12-30 07:20:15 Arthritis of facet joint of lumbar Active 2019-12-30 07 :20:15 spine Lumbago with sciatica Active 2019-12-30 07:20:15 Prolapsed lumbar intervertebral disc Active 2019-12-30 07:20:15 Moderately severe recurrent major Active 2019-12-30 07: 20:15 depression Chronic pain syndrome Active 2019-12-01 13:47:36 Long-term drug therapy Active 2019-12-01 13:47:36 Medication monitoring Active 2019-12-01 13:47:36 Chronic low back pain Active 2019-12-01 13:47:36 Arthritis of facet joint of lumbar Active 2019-12-01 13 :47:36 spine Lumbago with sciatica Active 2019-12-01 13:47:36 Prolapsed lumbar intervertebral disc Active 2019-12-01 13:47:36 Moderately severe recurrent major Active 2019-12-01 13: 47:36 depression Chronic pain syndrome Active 2019-11-09 22:43:05 Long-term drug therapy Active 2019-11-09 22:43:05 Medication monitoring Active 2019-11-09 22:43:05 Chronic low back pain Active 2019-11-09 22:43:05 Arthritis of facet joint of lumbar Active 2019-11-09 22 :43:05 spine Lumbago with sciatica Active 2019-11-09 22:43:05 Prolapsed lumbar intervertebral disc Active 2019-11-09 22:43:05 Moderately severe recurrent major Active 2019-11-09 22: 43:05 depression Other cervical disc degeneration, unsp Active cervical region Pain in right hand Active Pain in right wrist Active Radiculopathy, cervical region Active Carpal tunnel syndrome, left upper limb Active Carpal tunnel syndrome, right upper Active limb Pain in right hand Active Pain in left hand Active Radiculopathy, lumbar region Active Spinal stenosis, lumbar region without Active neurogenic rajan Low back pain Active Carpal tunnel syndrome, left upper limb Active Other intervertebral disc degeneration, Active lumbar region Radiculopathy, lumbar region Active Sciatica, unspecified side Active Lesion of sciatic nerve, bilateral Active lower limbs Derang of post horn of medial mensc d/t Active 14:55:00 old tear/inj, l knee ANTERIOR Cruciate ligament disruption Active 2018-06-24 14:55:00 (old)->Left Derang of post horn of medial mensc d/t Active 14:55:00 old tear/inj, l knee Low back pain Active 2018-05-08 15:50:20 Depressive disorder Active 2018-05-08 16:38:51 Chronic pain syndrome Active 2018-05-08 16:39:11 Chronic pain syndrome Active 2018-03-19 11:10:50 Medication monitoring Active 2018-03-19 11:02:23 Lumbar radiculopathy Active 2018-03-19 11:10:58 Low back pain Active 2018-03-19 11:10:58 Low back pain Active 2018-03-08 09:50:16 Arthropathy of lumbar facet joint Active 2018-03-08 10: 35:00 Chronic pain syndrome Active 2018-03-08 10:35:07 Encounters Start End Encounter Admission Attending Care Care Encounter Date/Time Date/Time Type Type Clinicians Facility Department ID 2020-01-06 2020-01-06 [facility] [id number] 20 00:00:00 00:00:00 MD Deepti: Immediate Immediate & [address] [place] [address], Ph. 2019-12-09 2019-12-09 [place] jefferson [facility] [id number] 20 00:00:00 00:00:00 MD Deepti: Immediate Immediate & [address] [place] [address], Ph. 2019-11-10 2019-11-10 Edward [facility] [id number] 20 00:00:00 00:00:00 MD Deepti: Immediate Immediate & [address] & Family [facility] [address], Ph. 2019-04-25 2019-04-25 [id number] 28-8 14:15:00 14:15:00 [facility] [id number] 18-B \T\ Sports [id number] Medicine NB [id number] 2019-03-27 2019-03-27 Outpatient Wayne [facility] [id number] 1C2-C 08:00:00 08:00:00 [facility] [id number]-[id number] \T\ Sports [id number] Medicine NB [id number] 2019-03-20 2019-03-20 Outpatient Wayne [facility] ED53D A32-D 08:00:00 08:00:00 [facility] [id number] \T\ Sports [id number] Medicine NB [id number] 2019-02-14 2019-02-14 Outpatient Wayne [facility] [id number] BA6-7 08:05:00 08:05:00 [facility] [id number] \T\ Sports [id number] Medicine NB [id number] 2018-07-23 2018-07-23 No [facility] [id number] -b 10:20:00 10:20:00 Diagnosis CHRISTOPHER [id number] 2018-07-08 2018-07-08 Kate [facility] 5ababdf 9-1 14:30:00 14:30:00 post anahi JACOBSEN [id number] of medial [id number] [facility] [place] cbdca3 old tear/inj, l knee (M23.222 ICD-10-CM) 2018-06-24 2018-06-24 Celine [facility] [id number] 23-5 14:55:00 14:55:00 post horn RICKY 3ce-45f6 -b of medial [id number] [facility] [place]/t 4c51a4 old tear/inj, l knee (M23.222 ICD-10-CM) 2018-05-08 2018-05-08 Nnamdi Dorman [id number] 00:00:00 00:00:00 Ken: [facility] [address] [address] [place] [address], Ph. [phone] 2018-03-19 2018-03-19 Jovany Haynset [id number] 00:00:00 00:00:00 MD Alie: [facility] [id number] [facility] [address], Ph. 2018-03-08 2018-03-08 Nnamdi Dorman [id number] 00:00:00 00:00:00 Ken: [facility] [address] [address] [place] [address], Ph. [phone] 2017-08-21 2017-08-21 Emergency ED CHARLY JARRELL [facility] V00 [id number] 19:14:00 19:14:00 90 Immunizations Ordered Filled Immunization Date Status Comments Refus al Reason Immunization Name Name influenza, 2017-02-26 Completed injectable, 00:00:00 quadrivalent Vaccination Unknown Completed Payers Payer Name Policy Type Policy Number Effective Date Expiration D ate Social History Smoking Status Start Date Stop Date Never smoker Vital Signs Vital Name Observation Time Observation Value Comments Height 2020-01-06 00:00:00 70 [in_i] BMI (Body Mass Index) 2020-01-06 00:00:00 24.7 kg/m2 Body Weight 2020-01-06 00:00:00 172.4 [lb_av] BP Diastolic 2019-12-09 00:00:00 64 mm[Hg] Height 2019-12-09 00:00:00 70 [in_i] BMI (Body Mass Index) 2019-12-09 00:00:00 24 kg/m2 BP Systolic 2019-12-09 00:00:00 112 mm[Hg] Body Weight 2019-12-09 00:00:00 167.6 [lb_av] BP Diastolic 2018-05-08 00:00:00 80 mm[Hg] Height 2018-05-08 00:00:00 70 [in_i] BMI (Body Mass Index) 2018-05-08 00:00:00 23.1 kg/m2 BP Systolic 2018-05-08 00:00:00 113 mm[Hg] Body Weight 2018-05-08 00:00:00 161 [lb_av] BP Diastolic 2018-03-19 00:00:00 73 mm[Hg] Height 2018-03-19 00:00:00 70 [in_i] BMI (Body Mass Index) 2018-03-19 00:00:00 23.1 kg/m2 BP Systolic 2018-03-19 00:00:00 103 mm[Hg] Body Weight 2018-03-19 00:00:00 161 [lb_av] BP Diastolic 2018-03-08 00:00:00 90 mm[Hg] Height 2018-03-08 00:00:00 70 [in_i] BMI (Body Mass Index) 2018-03-08 00:00:00 23.4 kg/m2 BP Systolic 2018-03-08 00:00:00 128 mm[Hg] Body Weight 2018-03-08 00:00:00 163 [lb_av] WEIGHT 2017-08-21 19:14:00 71.9000 kg HEIGHT 2017-08-21 19:14:00 177.121663 cm height 2018-06-24 15:43:00 70 [in_us] weight 2018-06-24 15:43:00 155 [lb_av] bmi 2018-06-24 15:43:00 22.2 kg/m? Hospital Discharge Instructions 1. Low back pain 2. Depressive disorder 3. Chronic pain syndrome Cymbalta 60 mg capsule,delayed release Discussion Note: None recorded. Patient educational handouts: No information available.1. Low back pain getting back to normal after low back pain: care instructions XR, lumbar spine 2. Arthropathy of lumbar facet joint pain management referral 3. Chronic pain syndrome Cym talha 30 mg capsule,delayed release Discussion Note: None recorded.
== END 2020-01-05 15:23 | disposition home or self-care (01) ==
LOC: LC 14:50 → LR 01-06 19:36 → UNDOADMIN 01-06 19:36
PROVIDERS: ATTEND Obstetrics & Gynecology
DX: O48.0 Post-term pregnancy (principal); Z3A.40 40 weeks gestation of pregnancy
CPT/HCPCS: 59025

== ENCOUNTER 2020-01-06 19:31 | Inpatient (IN) | payer BC, MEDICAID ==
[2020-01-06] MEDS ORDERED: RINGERS SOLUTION,LACTATED 1,000 ML IV PRN (20:35)
[2020-01-06] MEDS ORDERED: RINGERS SOLUTION,LACTATED 300 ML IV ONE (20:35)
[2020-01-06] MEDS ORDERED: MAG HYDROX/AL HYDROX/SIMETH SUSP 30 ML UDCUP PO PRN (20:35)
[2020-01-06] MEDS ORDERED: DINOPROSTONE 10 MG VAGINAL INSERT.SR ONE (20:35)
[2020-01-06] MEDS ORDERED: ZOLPIDEM TARTRATE 5 MG TABLET PO PRN (20:35)
[2020-01-06] MEDS ORDERED: ACETAMINOPHEN 325 MG TABLET PO PRN (20:35)
[2020-01-06] MEDS ORDERED: DINOPROSTONE 10 MG VAGINAL INSERT.SR PV ONE (20:35)
[2020-01-06 20:56] LABS: APPEARANCE,URINE SLIGHTLY-CLOUDY; BILIRUBIN,URINE NEGATIVE (NEGATIVE); COLOR,URINE YELLOW; GLUCOSE, URINE NEGATIVE (NEGATIVE); KETONES,URINE NEGATIVE (NEGATIVE); LEUKOCYTE ESTERASE,URINE MODERATE (NEGATIVE); NITRITE,URINE NEGATIVE (NEGATIVE); PROTEIN,URINE NEGATIVE (NEGATIVE); URINE SPECIFIC GRAVITY 1.012; UROBILINOGEN,URINE NEGATIVE mg/dL (<2.0)
[2020-01-06 21:16] LABS: URINE AMPHETAMINES SCREEN NEGATIVE; URINE BARBITURATES SCREEN NEGATIVE; URINE BENZODIAZEPINES SCREEN NEGATIVE; URINE COCAINE SCREEN NEGATIVE; URINE MARIJUANA (THC) SCREEN NEGATIVE; URINE METHADONE SCREEN NEGATIVE; URINE PHENCYCLIDINE SCREEN NEGATIVE
[2020-01-06 22:39] LABS: ABSOLUTE EOSINOPHILS # (AUTO) 0.1 10^3/uL (0.0-0.6); ABSOLUTE LYMPHOCYTES (AUTO) 2.2 10^3/uL (0.5-4.7); ABSOLUTE MONOCYTES (AUTO) 0.9 10^3/uL (0.1-1.4); ABSOLUTE NEUT (AUTO) 6.5 10^3/uL (1.7-8.2); BASOPHILS % (AUTO) 0.4 % (0-2); EOSINOPHILS % (AUTO) 1.2 % (0-6); HEMATOCRIT 33.9 % (36.0-47.0); HEMOGLOBIN 11.9 g/dL (12.0-15.5); LYMPHOCYTES % (AUTO) 22.3 % (13-45); MEAN CORPUSCULAR HEMOGLOBIN 30.4 pg (27.0-33.4); MEAN CORPUSCULAR HGB CONC 35.1 g/dL (32.0-36.0); MEAN CORPUSCULAR VOLUME 87 fl (80-97); MONOCYTES % (AUTO) 9.4 % (3-13); PLATELET COUNT 221 10^3/uL (150-450); RED BLOOD COUNT 3.91 10^6/uL (3.72-5.28); SEGMENTED NEUTROPHILS % (AUTO) 66.7 % (42-78); TOTAL CELLS COUNTED % (AUTO) 100 %; WHITE BLOOD COUNT 9.8 10^3/uL (4.0-10.5)
--- NOTE | 2020-01-07 07:14 | Admission Physical ---
Datetime Report Generated by CPN: 01/07/2020 07:14 CURRENT ADMISSION Chief Complaint: Scheduled Induction of Labor Indication for Induction: Post Dates Admit Impression : Term, Intrauterine ; Induction of Labor Admit Plan: Admit to Unit ALLERGIES Medication Allergies: No Medication Allergies: No Known Allergies (12/11/2019) Latex: No Latex Allergies OBSTETRICAL HISTORY EDC: 01/02/2020 00:00 : 7 Para: 2 Term: 2 : 0 SAB: 4 IAB: 0 Ectopic: 0 Livin Cesareans: 0 VBACs: 0 Multiple Births: 0 Gestational Diabetes: No Rh Sensitization: No Incompetent Cervix: No EVA: No Infertility: No ART Treatment: No Uterine Anomaly: No IUGR: No Hx Previous C/S: No Macrosomia: No Hx Loss/Stillborn: No PIH: No Hx : No Placenta Previa/Abruption: No Depression/PP Depression: No PTL/PROM: No Post Hemorrhage: No Current Procedures: Ultrasound SEE RECORDS Alcohol: No Marijuana : No Cocaine: No Other Illicit Drugs: No Cigarettes: Never Smoker. 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 06/05/2019 ASCUS pap smear INFECTIOUS HISTORY Gonorrhea: No Genital Herpes: No Chlamydia: No Tuberculosis: No Syphilis: No Hepatitis: No HIV/AIDS Exposure: No Rash or Viral Illness: No HPV: No PHYSICAL EXAM General: Normal HEENT: Normal Neurologic: Normal Thyroid: Normal Heart: Normal Lungs: Normal Breast: Deferred Back: Normal Abdomen: Normal Genitourinary Exam: Normal Extremities: Normal DTRs: Normal Pelvic Type: Adequate Vital Signs: Reviewed VAGINAL EXAM Dilatation: 1 Effacement: 80 Station: -1 MEMBRANES Pooling: Negative Membranes: Intact FETUS A EGA: 40.5 Monitoring: External US FHR- Baseline: 120 Variability: Moderate 6-25bpm Decelerations: None FHR Category: Category I Presentation: Vertex Admit Comment: Plan induction PLANS FOR LABOR AND DELIVERY Labor and Delivery: None Pain Management: Epidural Feeding Preference: Breast Benefit of Breast Feed Discussed: Yes Circumcision: N/A INFORMED CONSENT Signature: with User ID: [email or web address]
[2020-01-07] MEDS ORDERED: OXYTOCIN/0.9 % SODIUM CHLORIDE 30 UNIT/500 ML RTUINJ IV PRN ×2 (11:41→22:33)
[2020-01-07] MEDS ORDERED: OXYTOCIN 10 UNIT/ML VIAL ONE (12:17)
[2020-01-07] MEDS ORDERED: MISOPROSTOL 0.2 MG TABLET ONE (12:18)
[2020-01-07] MEDS ORDERED: OXYTOCIN/0.9 % SODIUM CHLORIDE 30 UNIT/500 ML RTUINJ ONE (12:18)
[2020-01-07] MEDS ORDERED: LIDOCAINE 1% INJ-PF (10 MG/ML) 30 ML SDV ONE (12:18)
[2020-01-07] MEDS ORDERED: FENTANYL/BUPIVACAINE/NS/PF 300 MCG/150 ML RTUINJ EPI ONE (14:43)
[2020-01-07] MEDS ORDERED: EPHEDRINE SULFATE INJ 50 MG/1 ML AMPULE ONE (14:43)
[2020-01-07] MEDS ORDERED: ROPIVACAINE HCL 0.2% INJ/PF (2 MG/ML) 20 ML SDV ONE (14:43)
[2020-01-07] MEDS ORDERED: FENTANYL CITRATE INJ/PF 100 MCG/2 ML AMPUL ONE (18:26)
[2020-01-07] MEDS ORDERED: BUPIVACAINE HCL 0.25 % INJ/PF (2.5 MG/1 ML) 30 ML VIAL ONE (18:26)
[2020-01-07] MEDS ORDERED: OXYCODONE-ACETAMINOPHEN 5-325 MG TABLET ONE (19:40)
[2020-01-07] MEDS: OXYCODONE-ACETAMINOPHEN 5-325 MG TABLET PO PRN (19:41)
[2020-01-07] MEDS ORDERED: ACETAMINOPHEN 650 MG SUPP.RECT PR PRN (22:33)
[2020-01-07] MEDS ORDERED: BENZOCAINE/MENTHOL AEROSOL SPRAY 56 ML TOP PRN (22:33)
[2020-01-07] MEDS ORDERED: PROMETHAZINE HCL 25 MG TABLET PO PRN (22:33)
[2020-01-07] MEDS ORDERED: ACETAMINOPHEN 325 MG TABLET PO PRN (22:33)
[2020-01-07] MEDS ORDERED: ZOLPIDEM TARTRATE 5 MG TABLET PO PRN (22:33)
[2020-01-07] MEDS ORDERED: NA PHOS,M-B/NA PHOS,DI-BA (ADULT) 133 ML ENEMA PR PRN (22:33)
[2020-01-07] MEDS ORDERED: PSEUDOEPHEDRINE HCL 30 MG TABLET PO PRN (22:33)
[2020-01-07] MEDS ORDERED: PROMETHAZINE HCL INJ 25 MG/1 ML VIAL IV PRN (22:33)
[2020-01-07] MEDS ORDERED: DIBUCAINE 1% OINTMENT 28 GM TP PRN (22:33)
[2020-01-07] MEDS ORDERED: DIPHENHYDRAMINE HCL 25 MG CAPSULE PO PRN (22:33)
[2020-01-07] MEDS ORDERED: ACETAMINOPHEN WITH CODEINE #3 TABLET PO PRN ×2 (22:33)
[2020-01-07] MEDS ORDERED: MAGNESIUM HYDROXIDE SUSP 30 ML UDCUP PO PRN (22:33)
[2020-01-07] MEDS ORDERED: PROMETHAZINE HCL 25 MG SUPP.RECT PR PRN (22:33)
[2020-01-07] MEDS ORDERED: DIPH/PERTUSS(ACELL)/TETANUS VAC/PF 0.5 ML SYR (>=10YO) IM PRN (22:33)
[2020-01-07] MEDS ORDERED: MEASLES,MUMPS&RUBELLA VACC/PF 0.5 ML VIAL SUBCUT PRN (22:33)
[2020-01-07] MEDS ORDERED: GLYCERIN/WITCH HAZEL LEAF 1 EACH MED..WIPE TP PRN (22:33)
[2020-01-07] MEDS ORDERED: IBUPROFEN 800 MG TABLET PO SCH (22:45)
--- NOTE | 2020-01-07 23:23 | Birth Certificate Data ---
Cert Data Datetime Report Generated by CPN: 01/07/2020 23:23 CERTIFICATE DATA Delivery Provider: Lakeisha Lowe MD (10/07/2019 16:48:Nicky Fitzgerald RNC) 47a. Care: Yes (10/07/2019 16:48:Tawnya Coreas RN) 47b. Date of First Visit: 06/05/2019 00:00 (10/07/2019 16:48:Maricruz Hernandez RN) 47c. Date of Last Visit: 01/05/2020 00:00 (10/07/2019 16:48:Maricruz Hernandez RN) 47d. Number of Visits: 14 (10/07/2019 16:48:Maricruz Hernandez RN) 48a. Number of Prev Live Births: 2 (10/07/2019 16:48:Maricruz Hernandez RN) 48b. Now Livin (10/07/2019 16:48:Cristine Francisco RN) 48c. Live Births Now : 0 (10/07/2019 16:48:QS system process) 48d. Date of Last Live : 07/10/2009 00:00 (10/07/2019 16:48:Maricruz Hernandez RN) 48e. Losses: 4 (10/07/2019 16:48:Maricruz Hernandez RN) 48f. Date of Last Preg Loss: 01/30/2018 00:00 (10/07/2019 16:48:Maricruz Hernandez RN) RISK FACTORS IN THIS 49a. Diabetes: No (10/07/2019 16:48:Cristine Francisco RN) 49b. Hypertension: No (10/07/2019 16:48:Cristine Francisco RN) 49c. Previous Births: 0 (10/07/2019 16:48:Tawnya Coreas RN) 49d. Stillborns: No (10/07/2019 16:48:Cristine Francisco RN) 49d. IUGR: No (10/07/2019 16:48:Cristine Francisco RN) 49e. Infertility Treatment: No (10/07/2019 16:48:Cristine Francisco RN) 49f. Previous Cesareans: 0 (10/07/2019 16:48:Maricruz Hernandez RN) Mother's Height 50b. Height Inches: 70 (10/07/2019 16:44:QS system process) Mother's Weight 51a. Pre- Weight (lbs): 135 (10/07/2019 16:48:Maricruz Hernandez RN) 51b. Weight at Delivery (lbs): 174 (01/06/2020 20:20:QS system process) Infections Present/Treated 53a. Gonorrhea: No (10/07/2019 16:48:Cristine Francisco RN) Results this Hospital Visit : Negative (10/07/2019 16:48:Marlene Tran RN) 53b. Syphilis: No (10/07/2019 16:48:Cristine Francisco RN) Results this Hospital Visit: NONREACTIVE (01/06/2020 21:20:QS system process) 53c. Chlamydia: No (10/07/2019 16:48:Cristine Francisco RN) Results this Hospital Visit: Negative (10/07/2019 16:48:Marlene Tran RN) 53d. Hepatitis B: No (10/07/2019 16:48:Cristine Francisco RN) Results this Hospital Visit: Negative (10/07/2019 16:48:Marlene Tran RN) 53e. Hepatitis C: Negative (10/07/2019 16:48:Marlene Tran RN) 53h. Mother Tested for HBsAG: Yes (10/07/2019 16:48:Marlene Tran RN) 53i. Date Tested: 06/05/2019 00:00 (10/07/2019 16:48:Marlene Tran RN) 53j. Test Result: Negative (10/07/2019 16:48:Marlene Tran RN) Obstetric Procedures 54a, b, c. Obstetric Procedures: Ultrasound (10/07/2019 16:48:Cristine Francisco RN) Cigarette Smoking Cigarette Smoking: Never Smoker. [id number] (10/07/2019 16:48:Maricruz Hernandez RN) 55a. 3 Months Before Preg - Ci (10/07/2019 16:48:Marlin Anderson RN) 55a. Packs: 0 (10/07/2019 16:48:Marlin Anderson RN) 55b. 1st Trimester of Preg- Ci (10/07/2019 16:48:Marlin Anderson RN) 55b. Packs: 0 (10/07/2019 16:48:Marlin Anderson RN) 55c. 2nd Trimester of Preg- Ci (10/07/2019 16:48:Marlin Anderson RN) 55c. Packs: 0 (10/07/2019 16:48:Marlin Anderson RN) 55d. 3rd Trimester of Preg- Ci (10/07/2019 16:48:Marlin Anderson RN) 55d. Packs: 0 (10/07/2019 16:48:Marlin Anderson RN) Onset of Labor 56a. PROM >12 Hrs: 6.37 (10/07/2019 16:48:QS system process) 56b. Precipitous Labor <3 Hrs: 1 (10/07/2019 16:48:QS system process) 56c. Prolonged Labor > 20 Hrs: 1 (10/07/2019 16:48:QS system process) 57a. Induction of Labor: Induction (10/07/2019 16:48:HARJINDER Lennon) 57a. Induction of Labor: Cervidil (01/07/2020 09:37:Cristine Francisco RN) 57c. Non-Vertex Presentation A: Vertex (10/07/2019 16:48:HARJINDER Lennon) 57d. Steroids - Lung Mat: None (10/07/2019 16:48:HARJINDER Lennon) 57d. Steroids - Lung Mat: Not Applicable (10/07/2019 16:48:HARJINDER Lennon) 57f. Mat Chorio or Temp >100.4: 98.4 (10/07/2019 16:48:Maricruz Hernandez RN) 57g. Moderate/Heavy Meconium: Clear (01/07/2020 16:00:Cristine Francisco RN) 57h. Intolerance of Labor: N/A (10/07/2019 16:48:Marlin Anderson RN) : N/A (10/07/2019 16:48:Marlin Anderson RN) 57i. Epidural/Spinal Anesthesia: Epidural (10/07/2019 16:48:HARJINDER Lennon) Method of Delivery 58a. Forceps - Unsuccessful A: N/A (10/07/2019 16:48:Nicky Bellhilariance, C) 58b. Vacuum - Unsuccessful A: N/A (10/07/2019 16:48:Nicky Bellavance, RNC) 58c. Presentation at 58c. Presentation at - A : Vertex (10/07/2019 16:48:Nicky Faisalnce, [facility]) 58c. Presentation at - A : N/A (10/07/2019 16:48:Nicky Bellavance, [facility]) 58c. Presentation at - A : Cephalic (01/07/2020 20:39:Marlin Anderson RN) Final Route and Method of Del 58d. Baby A Route/Delivery: Vaginal (01/07/2020 22:22:Nicky Bermudeze, RN) 58e. Trial of Labor Attempted: No (10/07/2019 16:48:Nickyrossy Fitzgerald, RNC) 58e. Trial of Labor Attempted A: N/A (10/07/2019 16:48:Nicky Bellavance, RNC) 58e. Trial of Labor Attempted B: N/A (10/07/2019 16:48:Nicky Bellavance, RNC) Maternal Morbidity 59b. 3rd or 4th Degree Lacs: Perineal (10/07/2019 16:48:Nicky Bellavance, RNC) Birthweight Baby A: 3390 (10/07/2019 16:48:Shahrzad Esquivel RN) 60a. Pounds : 7 (10/07/2019 16:48:QS system process) 60b. Ounces: 8 (10/07/2019 16:48:QS system process) 61. GA at Delivery Baby A: 40.5 (10/07/2019 16:48:Nicky Amilcar, [facility]) : Full Term- 39- 40.6 Weeks (10/07/2019 16:48:QS system process) 62a. 5 Minute Baby A: 9 (10/07/2019 16:48:QS system process)
--- NOTE | 2020-01-07 23:23 | Delivery Summary ---
Del Sum A-C Datetime Report Generated by CPN: 01/07/2020 23:23 DELIVERY PERSONNEL DELIVERY PERSONNEL: [id number] Delivery Doctor:: Lakeisha Lowe MD Labor and Delivery Nurse:: Marlin Anderson RN Nursery Nurse:: Kamila Kuhn RN Nursery Nurse:: Elizabeth Duncan RN Manager Quality Improvement/TESTING TECH: Shanelle Combs, ST MATERNAL INFORMATION Delivery Anesthesia: Epidural Medications After Delivery: Pitocin 30 Units in 500ml NS/D5W Maternal Complications: None Provider Comments: Called to patients room as she was complete with urge to push. Delivered viable female after a small amount of pushing. After delivery of the head the shoulders and the rest of the body followed easily. INfant was crying vigorously. Cord clamping delayed for 30 seconds and then doubly clamped and cut. Both mother and stable. LABOR SUMMARY EDC: 01/02/2020 00:00 No. Babies in Womb: 1 Attempted: No Labor Anesthesia: Epidural LABOR INFORMATION Reason for Induction: Post Dates Onset of Labor: 01/07/2020 20:39 Complete Dilatation: 01/07/2020 22:06 Cervical Ripening Agents: Cervidil Oxytocin: Induction Group B Beta Strep: Negative Antibiotics # of Doses: 0 Name of Antibiotic Given: n/a Steroids Given: None Reason Steroids Not Administered: Not Applicable MEMBRANES Membranes Rupture Method: Artificial Rupture of Membranes: 01/07/2020 16:00 Length of Rupture (hr): 6.37 Amniotic Fluid Color: Clear Amniotic Fluid Amount: Small Amniotic Fluid Odor: None STAGES OF LABOR Stage 1 hr: 1 Stage 1 min: 27 Stage 2 hr: 0 Stage 2 min: 16 Stage 3 hr: 0 Stage 3 min: 3 Total Time in Labor hr: 1 Total Time in Labor min: 46 VAGINAL DELIVERY Episiotomy: None Laceration #1: Perineal Laceration Extension #1: First Degree Laceration Repair: Yes Laceration Repair Note: 3-0 chromic in a runnig closure Sponge Count Correct: N/A Sharps Count Correct: N/A CSECTION DELIVERY Primary Indication: N/A Secondary Indication: N/A CSection Incidence: N/A Labor: N/A Elective: N/A CSection Incision: N/A BABY A INFORMATION Delivery Date/Time: 01/07/2020 22:22 Method of Delivery: Vaginal Nurse Controlled Delivery: No Born in Route : No : N/A Forceps: N/A Vacuum Extraction: N/A Shoulder Dystocia : No PRESENTATION/POSITION BABY A Presentation: Cephalic Cephalic Presentation: Vertex Vertex Position: Left Occipital Anterior Breech Presentation: N/A PLACENTA INFORMATION BABY A Placenta Delivery Time : 01/07/2020 22:25 Placenta Method of Delivery: Spontaneous Placenta Status: Delivered SCORES BABY A Heart Rate 1 min: >100 bpm Resp Effort 1 min: Good Cry Reflex Irritability 1 min: Cough or Sneeze or Pulls Away Muscle Tone 1 min: Active Motion Color 1 min: Blue/Pale Resuscitation Effort 1 min: Tactile Stimulation SCORE 1 MIN: 8 Heart Rate 5 min: >100 bpm Resp Effort 5 min: Good Cry Reflex Irritability 5 min: Cough or Sneeze or Pulls Away Muscle Tone 5 min: Active Motion Color 5 min: Body Mcintosh, Extremities Blue Resuscitation Effort 5 min: Tactile Stimulation SCORE 5 MIN: 9 INFANT INFORMATION BABY A Gestational Age at Delivery: 40.5 Gestational Status: Full Term- 39- 40.6 Weeks Outcome : Liveborn Infant Condition : Stable Sex: Female IDENTIFICATION BABY A Verification Date/Time: 01/07/2020 22:31 ID Band Number: [id number] Mother's Name Verified: Yes Infant RN Verifying : R Marhefka RN/D Bellavance RN WEIGHT/LENGTH BABY A Birthweight (gm): 3390 Weight (lb): 7 Weight (oz): 8 Length (in): 20.00 Length (cm): 50.80 CORD INFORMATION BABY A No. Cord Vessels: 3 Nuchal Cord : N/A Cord Blood Taken: Yes-For Storage (Mom's Blood type +) Infant Suction: Mouth; Nose ASSESSMENT BABY A Complications: None Physical Findings at Delivery: Within Normal Limits Infant Respirations: Appears Normal Skin to Skin: Yes Java Lead Architect/ALS Called : No Transferred To: Remains with Mother BABY B INFORMATION : N/A SIGNATURES Signature: with User ID: Lazaro : with User ID: [email or web address]
[2020-01-08] MEDS: FAMOTIDINE 20 MG TABLET PO SCH ×3 (00:29→21:57)
[2020-01-08 08:00] LABS: HEMATOCRIT 29.8 % (36.0-47.0); HEMOGLOBIN 10.4 g/dL (12.0-15.5); MEAN CORPUSCULAR HEMOGLOBIN 30.2 pg (27.0-33.4); MEAN CORPUSCULAR HGB CONC 35.1 g/dL (32.0-36.0); MEAN CORPUSCULAR VOLUME 86 fl (80-97); PLATELET COUNT 190 10^3/uL (150-450); RED BLOOD COUNT 3.47 10^6/uL (3.72-5.28); RED CELL DISTRIBUTION WIDTH 13.1 % (11.5-14.0); WHITE BLOOD COUNT 12.6 10^3/uL (4.0-10.5)
[2020-01-08] MEDS: OXYCODONE-ACETAMINOPHEN 5-325 MG TABLET PO PRN ×2 (08:34→17:28)
[2020-01-08] MEDS ORDERED: PRENATAL VITAMIN W DHA CAPSULE PO SCH (10:00)
[2020-01-08] MEDS: DOCUSATE SODIUM 100 MG CAPSULE PO SCH ×2 (10:09→17:27)
[2020-01-08] MEDS: SENNOSIDES/DOCUSATE 8.6-50 MG 1 EACH TABLET PO SCH (10:09)
[2020-01-08] MEDS: IBUPROFEN 800 MG TABLET PO SCH ×2 (10:10→17:27)
[2020-01-08] MEDS: FERROUS SULFATE 325 MG TABLET PO SCH ×2 (10:18→17:27)
--- NOTE | 2020-01-08 11:19 | PDOC PROGRESS REPORT ---
Subjective-OB Progress Note for:: 01/08/20 Subjective: Pt doing well, no concerns. She reports light bleeding reg diet and voiding w/o difficulty. Physical Exam (OB) Vital Signs: Temp Pulse Resp BP Pulse Ox 98.2 F 72 16 101/66 100 01/08/20 08:09 01/08/20 08:09 01/08/20 08:09 01/08/20 08:09 01/08/20 08:09 Intake & Output 01/07/20 01/08/20 01/09/20 06:59 06:59 06:59 Intake Total 500 Balance 500 Weight 78.7 kg - PIH/Pre-Eclampsia Clonus: Negative Headache: Absent Epigastric Pain: No Visual Changes: No - Maternal Morbidity 59. Maternal Morbidity (serious complications experinced by the mother associated with labor and delivery: None of the above - Lochia Lochia Amount: Scant < 10 ml Lochia Color: Rubra/Red - Abdomen Description: Soft Hernia Present: No Fundal Description: Firm, Midline Fundal Height: u/u - u/2 Objective-Diagnostic Laboratory: 01/08/20 07:29 01/08/20 07:29 WBC 12.6 H RBC 3.47 L Hgb 10.4 L Hct 29.8 L MCV 86 MCH 30.2 MCHC 35.1 RDW 13.1 Plt Count 190 Assessment and Plan(PN) - Assessment and Plan (1) (spontaneous vaginal delivery) Is this a current diagnosis for this admission?: Yes (2) Laceration, obstetrical, first degree Is this a current diagnosis for this admission?: Yes (3) Encounter for induction of labor Is this a current diagnosis for this admission?: Yes - Time Spent with Patient Time with patient: Less than 15 minutes Medications reviewed and adjusted accordingly: Yes - Disposition Anticipated Discharge Disposition: Home, Self Care Anticipated Discharge Timeframe: within 24 hours
--- OUTSIDE RECORDS SUMMARY | 2020-01-08 17:42 | XMS REPORT ---
:1985 [facility] Address [facility] [address] [place] [address] Care Team Providers Name Role Phone [place] Attending Clinician Unavailable Wayne Attending Clinician Unavailable THEO Attending Clinician Unavailable TIM Attending Clinician Unavailable CHRYSTAL RAIL WALKER-BC Attending Clinician Unavailable Allergies, Adverse Reactions, Alerts This patient has no known allergies or adverse reactions. Medications Ordered Filled Start Stop Current Ordering Indication Dosage Frequency Signature Comments Components Medication Medication Date Date Medication? Clinician (SIG) Name Name Ibuprofen Yes 06-24 15:44: 29 Cyclobenzap Yes Charly 10 Three rine Hcl 08-21 Grab Jack Worker-Bc Times Per (Flexeril*) 00:00: Green Day as 10 Mg Tab 00 needed for Muscle Spasm Naproxen Yes Charly 500 Twice Per (Naprosyn*) 08-21 Grab Jack Worker-Bc Day 500 Mg 00:00: Green Tablet 00 Prednisone Yes Charly 10 Taper 7 (Deltasone 08-21 Grab Jack Worker-Bc Day Taper*) 10 00:00: Green Mg Tablet [...] Back pain Problem Active 6-26 21:23: 00 Lateral Lateral Problem Active epicondylit Epicondylit is is Fibroadenom Fibroadenom Problem Active a of breast a of Breast Dental Dental Problem Active caries Caries Procedures Procedure Date / Time Performed Performing [...] Results Atomic Results Result Comments RADIOLOGY 2017-08-[address] 21:14:00 [place] [address] --- - Patient: LUIS GARCIA : 1985 Sex: F Address: [address] [place] [address] [place] [address] [id number] Unit #: [id number] [facility] SEQ #: [id number] Location: [facility] [place] Room #: Ordering: CHARLY JARRELL [facility]- Diagnosis: BACK PAIN --- - LUMBAR SPINE [...] TARYN LAZAR MD 08/21/172109 cc: CHARLY JARRELL [facility] TARYN LAZAR MD Urine Color 2017-08-21 19:39:00 Test Item Value Reference Range Comments Urine color determination (test code = 5778-6) YELLOW Urine [id number] 19:39:00 Test Item Value Reference Range Comments Urine clarity determination (test code = 45703-9) CLEAR Urine Specific [id number] 19:39:00 Test Item Value Reference Range Comments Specific gravity of Urine by Refractometry automated 1.019 1.005-1.030 (test code = 31455-5) Urine [id number] 19:39:00 Test Item Value Reference Range Comments Urine pH (test code = 2756-5) 5.5 4.7-8.0 Urine [id number] 19:39:00 Test Item Value Reference Range Comments Urine leukocyte esterase detection by automated test 0-3 0-3 strip (test code = 19262-9) Urine [id number] 19:39:00 Test Item Value Reference Range Comments Urine nitrite detection (test code = 45240-6) NEGATIVE NE GATIVE Urine [id number] 19:39:00 Test Item Value Reference Range Comments Urine protein detection (test code = 2887-8) NEGATIVE NEG -TRACE Urine Glucose (UA)2017-08-21 19:39:00 Test Item Value Reference Range Comments Urine glucose detection (test code = 2349-9) NEGATIVE NEG ATIVE Urine [id number] 19:39:00 Test Item Value Reference Range Comments Urine ketones detection (test code = 53531-5) NEGATIVE NE GATIVE Urine [id number] 19:39:00 Test Item Value Reference Range Comments Urine urobilinogen measurement (test code = 76485-9) NORMAL NORMAL Urine [id number] 19:39:00 Test Item Value Reference Range Comments Urine bilirubin detection (test code = 1977-8) NEGATIVE N EGATIVE Urine [id number] 19:39:00 Test Item Value Reference Range Comments Urine blood detection (test code = 64854-0) NEGATIVE NEGA TIVE Urine Culture [id number] 19:39:00 Test Item Value Reference Range Comments UA + culture (test code = 16715-9) YES Urine Squamous Epithelial [id number] 19:39:00 Test Item Value Reference Range Comments Urine squamous epithelial cells detection by automated 1-5 0-3 method (test code = 13175-3) Urine [id number] 19:39:00 Test Item Value Reference Range Comments Mucus detection in urine sediment by light microscopy SMALL (test code = 8247-9) Assessments Condition Name Status Diagnosis Date Treating [...] Type Clinicians Facility Department ID 2020-01-06 2020-01-06 ana [facility] [id number] 20 00:00:00 00:00:00 MD Deepti: Immediate Immediate & [address] [place] [address], Ph. 2019-12-09 2019-12-09 ana [facility] [id number] 20 00:00:00 00:00:00 MD Deepti: Immediate Immediate & [address] [place] [address], Ph. 2019-11-10 2019-11-10 Edward [facility] [id number] 20 00:00:00 00:00:00 MD Deepti: Immediate Immediate & [address] [facility], [place] [address], Ph. 2019-04-25 2019-04-25 [facility] [id number] 28-8 14:15:00 14:15:00 [facility] 99E-46 18-B \T\ Sports [id number] Medicine NB [id number] 2019-03-27 2019-03-27 Outpatient Wayne [facility] [id number] 1C2-C 08:00:00 08:00:00 [facility] [id number]-[id number] \T\ Sports [id number] Medicine NB [id number] 2019-03-20 2019-03-20 Outpatient Wayne [facility] ED53D A32-D 08:00:00 08:00:00 [facility] [id number] \T\ Sports [id number] Medicine NB [id number] 2019-02-14 2019-02-14 Outpatient Wayne [facility] [id number] BA6-7 08:05:00 08:05:00 [facility] [id number] \T\ Sports [id number] Medicine NB [id number] 2018-07-23 2018-07-23 No [facility] [id number] -b 10:20:00 10:20:00 Diagnosis CHRISTOPHER [id number] 2018-07-08 2018-07-08 Kate [facility] 5ababdf 9-1 14:30:00 14:30:00 post horn DELMAR 163-46d5-9 of medial [id number] [facility] d/t cbdca3 old tear/inj, l knee (M23.222 ICD-10-CM) 2018-06-24 2018-06-24 Celine [facility] c5dfbb 23-5 14:55:00 14:55:00 post horn RICKY 3ce-45f6 -b of medial [id number] [facility] d/t 4c51a4 old tear/inj, l knee (M23.222 ICD-10-CM) 2018-05-08 2018-05-08 Nnamdi Dorman [id number] 00:00:00 00:00:00 Ken: [facility] [address] [address] [place] [address], Ph. [phone] 2018-03-19 2018-03-19 Jovany Haynest [id number] 00:00:00 00:00:00 MD Alie: [facility] [address] [address] [facility], [place] [address], Ph. 2018-03-08 2018-03-08 Nnamdi Dorman [id number] 00:00:00 00:00:00 Ken: [facility] [address] [address] [place] [address], Ph. [phone] 2017-08-21 2017-08-21 Emergency ED [facility] V00 [id number] 19:14:00 19:14:00 90 Immunizations Ordered Filled Immunization [...] 2017-08-21 19:14:00 71.9000 kg HEIGHT 2017-08-21 19:14:00 177.006536 cm height 2018-06-24 15:43:00 70 [in_us] weight [...]
[2020-01-09] MEDS: IBUPROFEN 800 MG TABLET PO SCH ×2 (01:02→10:01)
[2020-01-09] MEDS: OXYCODONE-ACETAMINOPHEN 5-325 MG TABLET PO PRN ×2 (04:41→12:59)
[2020-01-09 08:15] VITALS: BP 108/72
[2020-01-09] MEDS: FAMOTIDINE 20 MG TABLET PO SCH (09:59)
[2020-01-09] MEDS: DOCUSATE SODIUM 100 MG CAPSULE PO SCH (10:02)
[2020-01-09] MEDS: SENNOSIDES/DOCUSATE 8.6-50 MG 1 EACH TABLET PO SCH (10:02)
--- NOTE | 2020-01-09 11:35 | PDOC PROGRESS REPORT ---
Subjective-OB Progress Note for:: 01/09/20 Subjective: Doing well, no c/o, wants to go home but baby will need to stay, going to be a maikel per nursery, bottle feeding, going to try and breastfeed, eating and drinking well Physical Exam (OB) Vital Signs: Temp Pulse Resp BP Pulse Ox 97.9 F 90 18 108/72 99 01/09/20 07:35 01/09/20 07:35 01/09/20 07:35 01/09/20 07:35 01/09/20 07:35 Intake & Output 01/08/20 01/09/20 01/10/20 06:59 06:59 06:59 Intake Total 500 600 Balance 500 600 - PIH/Pre-Eclampsia Clonus: Negative Headache: Absent Epigastric Pain: No Visual Changes: No - Maternal Morbidity 59. Maternal Morbidity (serious complications experinced by the mother associ ated with labor and delivery: None of the above - Lochia Lochia Amount: Scant < 10 ml Lochia Color: Serosa/Brown - Abdomen Description: Soft Hernia Present: No Fundal Description: Firm, Midline Fundal Height: u/u - u/2 Objective-Diagnostic Laboratory: 01/08/20 07:29 Assessment and Plan(PN) - Assessment and Plan (1) (spontaneous vaginal delivery) Is this a current diagnosis for this admission?: Yes (2) Laceration, obstetrical, first degree Is this a current diagnosis for this admission?: Yes (3) Encounter for induction of labor Is this a current diagnosis for this admission?: Yes - Time Spent with Patient Time with patient: Less than 15 minutes Smoking Education Provided: Over 3 minutes Medications reviewed and adjusted accordingly: Yes - Disposition Anticipated Discharge Disposition: Home, Self Care Anticipated Discharge Timeframe: within 24 hours
--- NOTE | 2020-01-09 11:40 | PDOC DISCHARGE SUMMARY ---
Impression - Admit/DC Date/PCP Admission Date/Primary Care Provider: 01/06/20 19:31 FRANKIE GONZALEZ MD Discharge Date: 01/09/20 - Discharge Diagnosis (1) (spontaneous vaginal delivery) Is this a current diagnosis for this admission?: Yes (2) Laceration, obstetrical, first degree Is this a current diagnosis for this admission?: Yes (3) Encounter for induction of labor Is this a current diagnosis for this admission?: Yes - Additional Information Resuscitation Status: Full Code Discharge Diet: As Tolerated, Regular Discharge Activity: Activity As Tolerated, Pelvic Rest Referrals: FRANKIE GONZALEZ MD [Primary Care Provider] - (rtc 4 weeks) Home Medications: Pnv 102/Iron/Folate 1/Dss/Dha [Vitafol Fe+ Docusate Combo Pck] 1 each PO DAILY 12/11/19 HPI Gestational Age: 40.5 Reason(s) for Admission: Induction of Labor Procedures: NST, Ultrasound Intrapartum Procedure(s): Spontaneous Vaginal Delivery Complication(s): Laceration-Perineal Laceration-Degree: 1st Hospital Course Hospital Course: routine 59. Maternal Morbidity (serious complications experinced by the mother associated with labor and delivery: None of the above Results Laboratory Results: WBC 12.6 10^3/uL (4.0-10.5) H 01/08/20 07:29 RBC 3.47 10^6/uL (3.72-5.28) L 01/08/20 07:29 Hgb 10.4 g/dL (12.0-15.5) L 01/08/20 07:29 Hct 29.8 % (36.0-47.0) L 01/08/20 07:29 MCV 86 fl (80-97) 01/08/20 07:29 MCH 30.2 pg (27.0-33.4) 01/08/20 07:29 MCHC 35.1 g/dL (32.0-36.0) 01/08/20 07:29 RDW 13.1 % (11.5-14.0) 01/08/20 07:29 Plt Count 190 10^3/uL (150-450) 01/08/20 07:29 Lymph % (Auto) 22.3 % (13-45) 01/06/20 21:20 [place] % (Auto) 9.4 % (3-13) 01/06/20 21:20 Eos % (Auto) 1.2 % (0-6) 01/06/20 21:20 Baso % (Auto) 0.4 % (0-2) 01/06/20 21:20 Absolute Neuts (auto) 6.5 10^3/uL (1.7-8.2) 01/06/20 21:20 Absolute Lymphs (auto) 2.2 10^3/uL (0.5-4.7) 01/06/20 21:20 Absolute Monos (auto) 0.9 10^3/uL (0.1-1.4) 01/06/20 21:20 Absolute Eos (auto) 0.1 10^3/uL (0.0-0.6) 01/06/20 21:20 Absolute Basos (auto) 0.0 10^3/uL (0.0-0.2) 01/06/20 21:20 Seg Neutrophils % 66.7 % (42-78) 01/06/20 21:20 Urine Color YELLOW 01/06/20 19:45 Urine Appearance SLIGHTLY-CLOUDY 01/06/20 19:45 Urine pH 6.0 (5.0-9.0) 01/06/20 19:45 Ur Specific [place] 1.012 01/06/20 19:45 Urine Protein NEGATIVE mg/dL (NEGATIVE) 01/06/20 19:45 Urine Glucose (UA) NEGATIVE mg/dL (NEGATIVE) 01/06/20 19:45 Urine Ketones NEGATIVE mg/dL (NEGATIVE) 01/06/20 19:45 Urine Blood NEGATIVE (NEGATIVE) 01/06/20 19:45 Urine Nitrite NEGATIVE (NEGATIVE) 01/06/20 19:45 Urine Bilirubin NEGATIVE (NEGATIVE) 01/06/20 19:45 Urine Urobilinogen NEGATIVE mg/dL (<2.0) 01/06/20 19:45 Ur Leukocyte Esterase MODERATE (NEGATIVE) H 01/06/20 19:45 Urine Ascorbic Acid NEGATIVE (NEGATIVE) 01/06/20 19:45 Urine Opiates Screen UNCONFIRMED POSITIVE 01/06/20 19:45 Urine Methadone Screen NEGATIVE 01/06/20 19:45 Ur Barbiturates Screen NEGATIVE 01/06/20 19:45 Ur Phencyclidine Scrn NEGATIVE 01/06/20 19:45 Ur Amphetamines Screen NEGATIVE 01/06/20 19:45 U Benzodiazepines Scrn NEGATIVE 01/06/20 19:45 Urine Cocaine Screen NEGATIVE 01/06/20 19:45 U Marijuana (THC) Screen NEGATIVE 01/06/20 19:45 RPR NONREACTIVE (NONREACTIVE) 01/06/20 21:20 Blood Type A POSITIVE 01/06/20 21:20 Antibody Screen NEGATIVE 01/06/20 21:20 Plan Health Concerns: routine Plan of Treatment: rev S&S to report Goals: no complications Time Spent: Less than 30 Minutes
[2020-01-09] MEDS: FERROUS SULFATE 325 MG TABLET PO SCH (13:55)
== END 2020-01-09 13:15 | disposition home or self-care (01) | DRG 807 ==
LOC: LR 19:31 → 2S 01-08 00:22
PROVIDERS: ADMIT Obstetrics & Gynecology; ATTEND Obstetrics & Gynecology
PROC: 10E0XZZ Delivery of Products of Conception, External Approach (ICD-10-PCS; principal; 2020-01-07)
PROC: 0HQ9XZZ Repair Perineum Skin, External Approach (ICD-10-PCS; 2020-01-07)
PROC: 10907ZC Drainage of Amniotic Fluid, Therapeutic from Products of Conception, Via Natural or Artificial Opening (ICD-10-PCS; 2020-01-07)
DX: O48.0 Post-term pregnancy (principal); O70.0 First degree perineal laceration during delivery; Z37.0 Single live birth; Z3A.40 40 weeks gestation of pregnancy
CPT/HCPCS: 1967; 36415; 80307; 81005; 85025; 85027; 86592; 86850; 86900; 86901; J2590; J2795; J3010; J3490

== ENCOUNTER 2020-01-20 15:39 | Emergency (ER) | payer BC, MEDICAID ==
[2020-01-20] MEDS ORDERED: NORMAL SALINE 1000 ML 1,000 ML IV ONE (16:03)
--- NOTE | 2020-01-20 16:06 | ER Document Report ---
ED Medical Screen (RME) - General Chief Complaint: Vaginal Bleeding Stated Complaint: VAGINAL BLEEDING Time Seen by Provider: 01/20/20 15:57 Primary Care Provider: FRANKIE GONZALEZ MD [Primary Care Provider] - Follow up as needed TRAVEL OUTSIDE OF THE [place] IN LAST 30 DAYS: No - HPI Notes: 01/20/20 16:03 35-year-old female G6, P3 2 weeks after vaginal delivery on 2019 presents to the emergency room by private vehicle after experiencing vaginal bleeding that saturated 3 pads in the last hour, dizziness, lightheadedness that started approximately 1 hour ago. Patient states that she was driving back from work when she noticed sudden onset of vaginal bleeding. Denies any history of blood disorders or bleeding disorders. Reports some nausea but denies any vomiting. Patient is not breast-feeding. Denies any complications with her or with her delivery. She did deliver at [facility]. Denies any fevers chills, chest pains, shortness of breath. Reports her blood pressure is typically 110/60. Did a repeat blood pressure 94/64 with a HR of 90 I have greeted and performed a rapid initial assessment of this patient. A comprehensive ED assessment and evaluation of the patient, analysis of test results and completion of the medical decision making process will be conducted by additional ED providers. PHYSICAL EXAMINATION: GENERAL: Well-appearing, well-nourished and in mild distress. HEAD: Atraumatic, normocephalic. EYES: Pupils equal round extraocular movements intact, conjunctiva are normal. NECK: Normal range of motion CV: s1, s2 regular LUNGS: No respiratory distress - Related Data Allergies/Adverse Reactions: No Known Allergies Allergy (Verified 01/20/20 15:56) Past Medical History Renal/ Medical History: Denies: Hx Peritoneal Dialysis Musculoskeltal Medical History: Reports Hx Arthritis, Reports Hx Musculoskeletal Deformity, Reports Hx Musculoskeletal Trauma Past Surgical History: Reports: Hx Orthopedic Surgery - left knee - Immunizations Immunizations up to date: Yes Hx Diphtheria, Pertussis, Tetanus Vaccination: Yes - unknown Physical Exam - Vital signs Vitals: Temp Resp BP 97.5 F 20 86/57 L 01/20/20 15:49 01/20/20 15:49 01/20/20 15:49 Course - Vital Signs Vital signs: Temp Pulse Resp BP Pulse Ox 97.5 F 20 86/57 L 01/20/20 15:49 01/20/20 15:49 01/20/20 15:49 Doctor's Discharge - Discharge Referrals: FRANKIE GONZALEZ MD [Primary Care Provider] - Follow up as needed
[2020-01-20 16:37] LABS: ABSOLUTE BASOPHILS # (AUTO) 0.1 10^3/uL (0.0-0.2); ABSOLUTE EOSINOPHILS # (AUTO) 0.3 10^3/uL (0.0-0.6); ABSOLUTE LYMPHOCYTES (AUTO) 3.6 10^3/uL (0.5-4.7); ABSOLUTE MONOCYTES (AUTO) 0.7 10^3/uL (0.1-1.4); ABSOLUTE NEUT (AUTO) 5.5 10^3/uL (1.7-8.2); BASOPHILS % (AUTO) 0.8 % (0-2); EOSINOPHILS % (AUTO) 3.3 % (0-6); HEMOGLOBIN 14.4 g/dL (12.0-15.5); LYMPHOCYTES % (AUTO) 35.3 % (13-45); MEAN CORPUSCULAR HEMOGLOBIN 29.5 pg (27.0-33.4); MEAN CORPUSCULAR HGB CONC 34.2 g/dL (32.0-36.0); MEAN CORPUSCULAR VOLUME 86 fl (80-97); MONOCYTES % (AUTO) 6.7 % (3-13); PLATELET COUNT 442 10^3/uL (150-450); RED BLOOD COUNT 4.87 10^6/uL (3.72-5.28); RED CELL DISTRIBUTION WIDTH 12.5 % (11.5-14.0); SEGMENTED NEUTROPHILS % (AUTO) 53.9 % (42-78); TOTAL CELLS COUNTED % (AUTO) 100 %; WHITE BLOOD COUNT 10.2 10^3/uL (4.0-10.5)
[2020-01-20 16:56] LABS: ALBUMIN 4.3 g/dL (3.5-5.0); ALKALINE PHOSPHATASE 67 U/L (38-126); ANION GAP 9 (5-19); ASPARTATE AMINO TRANSFERASE 26 U/L (14-36); BILIRUBIN,TOTAL 0.4 mg/dL (0.2-1.3); BLOOD UREA NITROGEN 14 mg/dL (7-20); CALCIUM 9.5 mg/dL (8.4-10.2); CARBON DIOXIDE 25 mmol/L (22-30); CHLORIDE 103 mmol/L (98-107); GLUCOSE 93 mg/dL (75-110); POTASSIUM 3.6 mmol/L (3.6-5.0); TOTAL PROTEIN 7.1 g/dL (6.3-8.2)
[2020-01-20 17:05] LABS: APPEARANCE,URINE CLOUDY; BILIRUBIN,URINE NEGATIVE (NEGATIVE); CALCIUM OXALATE CRYSTALS,URINE FEW /HPF; COLOR,URINE AMBER; GLUCOSE, URINE NEGATIVE (NEGATIVE); KETONES,URINE NEGATIVE (NEGATIVE); LEUKOCYTE ESTERASE,URINE SMALL (NEGATIVE); NITRITE,URINE NEGATIVE (NEGATIVE); PROTEIN,URINE 100 mg/dL (NEGATIVE); URINE SPECIFIC GRAVITY 1.031
--- NOTE | 2020-01-20 17:25 | RADIOLOGY REPORT (SQ) ---
EXAM DESCRIPTION: U/S NON OB PEL W/DOPPLER IMAGES COMPLETED DATE/TIME: 01/20/2020 4:47 pm REASON FOR STUDY: x2w, vag bleeding, 3pads in 1 hour, LH COMPARISON: None. TECHNIQUE: Dynamic and static grayscale images acquired of the pelvis via transabdominal approach an d recorded on PACS. Additional selected color Doppler and spectral images recorded. LIMITATIONS: None. FINDINGS: UTERUS: Contour normal. No mass. ENDOMETRIAL STRIPE: No focal thickening. Mild heterogeneity with the appearance of fluid or. Color Doppler interrogation demonstrates no internal vascularity. CERVIX: No nabothian cysts. RIGHT OVARY AND DOPPLER: Normal size. No worrisome masses. Normal arterial vascular flow without evid ence for torsion. LEFT OVARY AND DOPPLER: Normal size. No worrisome masses. Normal arterial vascular flow without evide nce for torsion. FREE FLUID: None noted. OTHER: No other significant finding. MEASUREMENTS: UTERUS: 14.0 x 9.4 x 6.6 cm ENDOMETRIAL STRIPE: 0.4 cm RIGHT OVARY: 3.4 x 2.1 x 1.5 cm LEFT OVARY: 3.1 x 1.8 x 1.1 cm IMPRESSION: Uniformly enlarged uterus is not entirely unexpected in the setting. The end ometrial echo complex appears mildly heterogeneous with central fluid; no evidence of retained produc ts of conception. TECHNICAL DOCUMENTATION: JOB ID: [id number] 2010 [employer]- All Rights Reserved Rev-07/13 Reading location - IP/workstation name: [email or web address]
--- NOTE | 2020-01-20 20:22 | ER Document Report ---
ED GI/ - General Chief Complaint: Post Problem Stated Complaint: VAGINAL BLEEDING Time Seen by Provider: 01/20/20 15:57 Primary Care Provider: FRANKIE GONZALEZ MD [ACTIVE STAFF] - Follow up in 3-5 days TRAVEL OUTSIDE OF THE [place] IN LAST 30 DAYS: No - HPI Notes: 01/20/20 22:10 Patient is a 35-year-old female who is a G7, P3 who presents with vaginal bleeding. Patient is 2 weeks . She had a normal vaginal delivery. She had mild vaginal bleeding as expected and it was improving. She went into work today and was standing for a long period of time. Patient states she felt a gush of blood. There was clots and blood in the pad that filled up the whole pad. Patient drove home and had another pad that was filled with blood. She came to the ER. She denies any cramping. Patient states she did feel lightheaded when this happened. No chest pain or shortness of breath. Nothing makes it better or worse. She states bleeding has decreased since she has been in the ER for several hours. 01/21/20 14:26 - Related Data Allergies/Adverse Reactions: No Known Allergies Allergy (Verified 01/20/20 15:56) Past Medical History - General Information source: Patient - Social History Smoking Status: Never Smoker Chew tobacco use (# tins/day): No Frequency of alcohol use: None Drug Abuse: None Family History: Reviewed & Not Pertinent, Hypertension, Thyroid Disfunction Patient has homicidal ideation: No Renal/ Medical History: Denies: Hx Peritoneal Dialysis Musculoskeletal Medical History: Reports Hx Arthritis, Reports Hx Musculo skeletal Deformity, Reports Hx Musculoskeletal Trauma Past Surgical History: Reports: Hx Orthopedic Surgery - left knee - Immunizations Immunizations up to date: Yes Hx Diphtheria, Pertussis, Tetanus Vaccination: Yes - unknown Review of Systems - Review of Systems Notes: CONSTITUTIONAL: No fever, fatigue or weight loss. SKIN: No rash. HENT: No congestion, ear pain, or sore throat. CARDIOVASCULAR: No chest pain or edema. RESPIRATORY: No cough, shortness of breath, congestion, or wheezing. GASTROINTESTINAL: No abdominal pain, nausea, vomiting, bloody stools or diarrhea. GENITOURINARY: No dysuria. Positive for vaginal bleeding. MUSCULOSKELETAL: No joint pain or swelling. NEUROLOGIC: No seizures. No headache, focal weakness or sensory changes. HEMATOLOGIC: No unusual bruising or bleeding. PSYCHIATRIC: No depression or anxiety. Physical Exam - Vital signs Vitals: Temp Resp BP 97.5 F 20 86/57 L 01/20/20 15:49 01/20/20 15:49 01/20/20 15:49 - General General appearance: Appears well Notes: VITAL SIGNS: Within normal limits. GENERAL: No acute distress, non-toxic appearance. HEAD: Normal with no signs of head trauma. EYES: EOMI, conjunctiva normal, no discharge. EARS: Hearing grossly intact. NECK: Normal range of motion, no tenderness, supple, no lymphadenopathy, No adenopathy, no JVD. CHEST: Clear breath sounds bilaterally. No wheezes, rales, or rhonchi. CARDIAC: Regular rate and rhythm. S1 and S2, without murmurs, gallops, or ru bs. VASCULAR: No Edema. ABDOMEN: Normal and soft with no tenderness, no masses or pulsatile masses. GENITOURINARY: Normal, No tenderness MUSCULOSKELETAL: Good range of motion of all major joints. Extremities without clubbing, cyanosis or edema. NEUROLOGICAL: Alert and oriented x 3. No focal sensory or strength deficits. Speech normal. Follows commands appropriately. PSYCHIATRIC: Normal Affect, judgement and mood. SKIN: Normal appearance with no rashes or lesions. Course - Re-evaluation Re-evalutation: 01/20/20 22:12 Patient's lab work was reviewed. Her hemoglobin is normal. I discussed the ultrasound findings with Dr. Houston from OB. She states this is normal. She recommended that patient rest and take maternity leave as she has not done this. Dr. Houston recommended she follow-up in the office. On reassessment, patient states she feels much better. She is no longer lightheaded. I discussed all th is with the patient. She is very agreeable to the plan for follow-up. She states her bleeding has decreased while in the ER. Patient was given strict return precautions. 01/21/20 14:29 - Vital Signs Vital signs: Temp Pulse Resp BP Pulse Ox 99.0 F 89 18 113/79 100 01/20/20 21:05 01/20/20 21:05 01/20/20 21:05 01/20/20 21:05 01/20/20 21:05 - Laboratory Result Diagrams: 01/20/20 16:22 01/20/20 16:22 Laboratory results interpreted by me: 01/20/20 01/20/20 16:22 16:22 Beta HCG, Quant 6.70 H Urine Protein 100 H Urine Blood LARGE H Urine Urobilinogen 2.0 H Ur Leukocyte Esterase SMALL H - Diagnostic Test Radiology reviewed: Image reviewed, Reports reviewed Discharge - Discharge Clinical Impression: Vaginal bleeding Condition: Stable Disposition: HOME, SELF-CARE Instructions: Vaginal Bleeding ([facility]) Additional Instructions: Your work-up today is reassuring. Please follow-up with [employer] in the office. Please return to the ER for any return of symptoms, lightheadedness, dizziness, any other concerning signs. Referrals: FRANKIE GONZALEZ MD [ACTIVE STAFF] - Follow up in 3-5 days
[2020-01-20 21:07] VITALS: BP 113/79
== END 2020-01-20 20:34 | disposition home or self-care (01) ==
LOC: ER 15:39
DX: O72.2 Delayed and secondary postpartum hemorrhage (principal)
CPT/HCPCS: 99285; 96360; 36415; 82962; 84702; 85025; 80053; 81001; 76856; 93976; J7030